=== PATIENT | female | born 1955 | race Caucasian/White ===

== ENCOUNTER → 2020-07-09 | Outpatient (CLI) | payer MEDICARE, OTHER ==
--- NOTE | 2020-07-12 07:31 | PE ---
EXAMINATION TYPE: PET CT fusion whole body DATE OF EXAM: 07/09/2020 COMPARISON: Outside MRI right hip report from July 01, 2020 HISTORY: History of breast cancer 2000 with concern for bone cancer. Recent abnormal MRI. TECHNIQUE: Following the intravenous administration of 9.96 mCi of F-18 FDG, whole body images are p erformed from the top of skull to the bottom of feet. Images are reviewed on the computer in the cor onal, axial, and sagittal planes. Reconstructed rotating images are created on independent workstati on and reviewed on the computer. A localization and attenuation correction CT is performed in conju nction with the PET scan. Blood glucose level equals 83. SCAN: Initial Scan FINDINGS: HEAD AND NECK: Abnormal supraclavicular adenopathy bilaterally, for reference there is right sided l ymph node at level of atrophic thyroid gland axial image 67 measuring 1.2 x 1.0 cm, max SUV is 5.68. Just inferior to this there is hypermetabolic left-sided 1.2 x 1.1 cm lymph node axial image 69, max SUV is 4.78. CHEST, MEDIASTINUM, AND HILAR REGION: There is abnormal hypermetabolic right tracheobronchial 1.4 x 1 .1 cm lymph node on image 91, max SUV is 3.89. ABDOMEN AND PELVIS: Normal excretion. Abnormal aortocaval 1.6 x 1.5 cm lymph node axial image 175, ma x SUV is 6.48. LOWER EXTREMITIES: No suspicious abnormal hypermetabolic uptake. OSSEOUS STRUCTURES: Corresponding to patient history there is destructive hypermetabolic mass right a cetabulum with large soft tissue component expanding into pelvis axial image 222 measuring 7.8 x 5.5 cm, max SUV is 12.61. Pathologic subcapital fracture redemonstrated as detailed on prior report. Larg e lesion or confluent lesions destroys superior and inferior pelvic ramus. Multiple additional osseous metastatic lesions . There are multiple lytic and/or hypermetabolic lesio ns. For reference left sacral hypermetabolic lytic lesion axial image 209, max SUV is 7.25. For reference there is soft tissue mass destroying left L4 transverse process measuring 3.5 x 3.2 cm axial image 177, max SUV is 9.97. Multiple additional hypermetabolic and/or lytic lesions throughout the bones. Mild to moderate pathol ogic compression type fractures at L2 and L3 vertebra noted. No distinct spinal canal invasion curren tly. OTHER CT: Small pericardial effusion. Enlarged pulmonary arteries, CT findings consistent with underl benja pulmonary artery hypertension. Mild intraperitoneal fluid. Uterus surgically absent. IMPRESSION: Confirmation of diffuse metastatic disease greatest involving the bones with large lesion right hip level invading pelvis. Pathologic fracture right hip. Pathologic compression type fracture s involving L2 and L3 vertebra. Additional details as discussed above.
== END | disposition home or self-care (01) ==
LOC: RADPETMAIN 13:43
PROVIDERS: ATTEND Family Medicine
DX: C79.51 Secondary malignant neoplasm of bone (principal); C41.4 Malignant neoplasm of pelvic bones, sacrum and coccyx; I31.3 Pericardial effusion (noninflammatory); I77.89 Other specified disorders of arteries and arterioles; M25.851 Other specified joint disorders, right hip; M79.89 Other specified soft tissue disorders; S32.028A Other fracture of second lumbar vertebra, initial encounter for closed fracture; S32.038A Other fracture of third lumbar vertebra, initial encounter for closed fracture; R59.0 Localized enlarged lymph nodes; R18.8 Other ascites; R91.8 Other nonspecific abnormal finding of lung field; Z90.710 Acquired absence of both cervix and uterus
CPT/HCPCS: 78816; A9552

== ENCOUNTER 2020-07-20 21:18 | Inpatient (IN) | payer MEDICARE, OTHER ==
--- NOTE | 2020-07-20 22:06 | XR ---
EXAMINATION TYPE: XR chest 1V portable DATE OF EXAM: 07/20/2020 COMPARISON: NONE HISTORY: Short of breath TECHNIQUE: Single view FINDINGS: There is no heart failure nor confluent pneumonic infiltrate. Costophrenic angles are clear . There are no hilar masses. Bony thorax is intact. IMPRESSION: No active cardiopulmonary disease.
[2020-07-20 22:33] LABS: Anisocytosis Slight; Basophils % (A) 0 %; Eosinophils # (A) 0.1 k/uL (0-0.7); Eosinophils % (A) 1 %; HCT 38.1 % (34.0-46.0); HGB 12.5 gm/dL (11.4-16.0); Lymphocytes # (A) 1.5 k/uL (1.0-4.8); Lymphocytes % (A) 19 %; MCH 29.2 pg (25.0-35.0); MCHC 32.8 g/dL (31.0-37.0); Mean Platelet Volume 8.1; Monocytes # (A) 0.3 k/uL (0-1.0); Monocytes % (A) 4 %; Neutrophils # (A) 5.8 k/uL (1.3-7.7); Neutrophils % (A) 76 %; Platelet Count 190 k/uL (150-450); Poikilocytosis Slight; RBC 4.28 m/uL (3.80-5.40); RDW 16.3 % (11.5-15.5); WBC 7.7 k/uL (3.8-10.6)
[2020-07-20] MEDS: SODIUM CHLORIDE 0.9% 500 ML 500 ML IV SCH ×2 (22:42→23:00)
[2020-07-20 22:47] LABS: Prothrombin Time 10.4 sec (9.0-12.0)
[2020-07-20 22:52] LABS: Albumin 2.8 g/dL (3.5-5.0); Calcium 9.4 mg/dL (8.4-10.2); Potassium 4.1 mmol/L (3.5-5.1); Total Bilirubin 0.5 mg/dL (0.2-1.3); Total Protein 5.7 g/dL (6.3-8.2)
[2020-07-20 22:54] LABS: Partial Thromboplastin Time 22.3 sec (22.0-30.0)
--- NOTE | 2020-07-20 23:24 | ED ---
SOB HPI - General Source: patient, EMS Mode of arrival: EMS Limitations: physical limitation <Dangelo Levine - Last Filed: 07/21/20 00:26> <Fadi Grajeda - Last Filed: 07/21/20 00:45> - General Chief Complaint: Shortness of Breath Stated Complaint: JAMARCUS Time Seen by Provider: 07/20/20 21:30 - History of Present Illness Initial Comments: Is a 65-year-old female with a history of breast cancer in the remote past and recent diagnosis of bony metastasis who presents emergency department for worsening shortness of breath and fatigue over the last couple of days. The patient lives at home by herself however does have a sister who lives nearby who comes and helps care for. The patient reportedly become more and more fatigued over the last couple of days and also has been noticing some hematuria and shortness of breath. The patient admits to intermittent cough that she describes is clearing her throat. No fevers or chills. No chest pain. No abdominal pain. No dark or bloody stools. She denies any dysuria. She states that she had an appointment to go to a clinic tomorrow and was trying to make it there however just couldn't stand the shortness of breath so she can emergency department. (Dangelo Levine) - Related Data Home Medications Medication Instructions Recorded Confirmed Ibuprofen [Motrin] 600 mg PO TID PRN 07/20/20 07/20/20 Nutri-Meds Bovine Thyroid Health 65 mg PO DAILY 07/20/20 07/20/20 Capsule Selenium 100 mcg PO DAILY 07/20/20 07/20/20 Allergies Allergy/AdvReac Type Severity Reaction Status Date / Time No Known Allergies Allergy Verified 07/20/20 22:11 Review of Systems ROS Other: All systems not noted in ROS Statement are negative. <Dangelo Levine - Last Filed: 07/21/20 00:26> ROS Other: All systems not noted in ROS Statement are negative. <Fadi Grajeda - Last Filed: 07/21/20 00:45> ROS Statement: Those systems with pertinent positive or pertinent negative responses have been documented in the HPI. Past Medical History Past Medical History: Cancer Additional Past Medical History / Comment(s): breast cancer 1999, bone cancer 2020 History of Any Multi-Drug Resistant Organisms: None Reported Past Surgical History: Appendectomy Past Psychological History: No Psychological Hx Reported Smoking Status: Never smoker Past Alcohol Use History: None Reported Past Drug Use History: None Reported <Dangelo Levine - Last Filed: 07/21/20 00:26> General Exam Limitations: physical limitation <Dangelo Levine - Last Filed: 07/21/20 00:26> - General Exam Comments Initial Comments: Constitutional: Awake alert Appears comfortable appears pale Head: Normocephalic atraumatic Eyes: no conjunctival injection No scleral icterus EOMI conjunctival pallor Neck: No JVD Supple Heart: Regular rate rhythm normal S1-S2 no murmurs Lungs: Does not appear tachypneic or in any respiratory distress Clear to auscultation bilaterally No wheezing No rales Abdomen: Soft nondistended nontender Extremities: Non edematous DP pulses intact Radial pulses intact Neuro: A&Ox3 No focal neurologic deficits Psych: Appropriate mood and affect (Dangelo Levine) Course <Dangelo Levine - Last Filed: 07/21/20 00:26> Vital Signs 07/20/20 07/20/20 07/20/20 21:20 21:31 22:20 Temperature 97.6 F Pulse Rate 89 89 Respiratory 22 20 22 Rate Blood Pressure 96/65 90/67 O2 Sat by Pulse 78 L 90 L Oximetry - Reevaluation(s) Reevaluation #1: EKG showing normal sinus rhythm with a rate of 87. There is no abnormal ST segment changes or T-wave inversions. QTC is 416. Other intervals normal. No ectopy. 07/20/20 23:24 (Dangelo Levine) Reevaluation #2: 07/20/20 2344 Pts care transitioned to Dr. Grajeda. Plan for admission for dehydration, ELIZABETH, hmaturia. Can't get CTA because of GFR. Dry CT pending. LE dopplers pending. Concern for possible PE. Need to be careful with anticoagulation because of hematuria. Pt and family updated on plan (Dangelo Levine) Procedures - [place] Protocol (Time Out) Nurse: Nini Greene <Dangelo Levine - Last Filed: 07/21/20 00:26> Medical Decision Making - Lab Data Result diagrams: 07/20/20 22:20 07/20/20 22:20 <Dangelo Levine - Last Filed: 07/21/20 00:26> - Lab Data Result diagrams: 07/20/20 22:20 07/20/20 22:20 <Fadi Grajeda - Last Filed: 07/21/20 00:45> - Medical Decision Making I receive this patient as sign out to discuss the admission when the studies were back. Discussed results with Dr. Hooper, who will admit with consults for Dr. Sanders and for the casino slot supervisor's given the elevated troponin, though this is suspected due to the acute kidney injury. Discussed with Dr. Hooper giving dose of Lovenox given the hematuria and at this point the risk of PE is high and will give Lovenox. Patient to have V/Q at first availability. (Fadi Grajeda) - Lab Data Lab Results 07/20/20 07/20/20 07/20/20 Range/Units 22:20 22:20 22:20 WBC 7.7 (3.8-10.6) k/uL RBC 4.28 (3.80-5.40) m/uL Hgb 12.5 (11.4-16.0) gm/dL Hct 38.1 (34.0-46.0) % MCV 89.0 (80.0-100.0) fL MCH 29.2 (25.0-35.0) pg MCHC 32.8 (31.0-37.0) g/dL RDW 16.3 H (11.5-15.5) % Plt Count 190 (150-450) k/uL MPV 8.1 Neutrophils % 76 % Lymphocytes % 19 % Monocytes % 4 % Eosinophils % 1 % Basophils % 0 % Neutrophils # 5.8 (1.3-7.7) k/uL Lymphocytes # 1.5 (1.0-4.8) k/uL Monocytes # 0.3 (0-1.0) k/uL Eosinophils # 0.1 (0-0.7) k/uL Basophils # 0.0 (0-0.2) k/uL Poikilocytosis Slight Anisocytosis Slight PT 10.4 (9.0-12.0) sec INR 1.0 (<1.2) APTT 22.3 (22.0-30.0) sec D-Dimer (<0.60) mg/L FEU Sodium 128 L (137-145) mmol/L Potassium 4.1 (3.5-5.1) mmol/L Chloride 102 (98-107) mmol/L Carbon Dioxide 16 L (22-30) mmol/L Anion Gap 10 mmol/L BUN 54 H (7-17) mg/dL Creatinine 1.40 H (0.52-1.04) mg/dL Est GFR (CKD-EPI)AfAm 45 (>60 ml/min/1.73 sqM) Est GFR (CKD-EPI)NonAf 39 (>60 ml/min/1.73 sqM) Glucose 106 H (74-99) mg/dL Plasma Lactic Acid Matthew (0.7-2.0) mmol/L Calcium 9.4 (8.4-10.2) mg/dL Total Bilirubin 0.5 (0.2-1.3) mg/dL AST 164 H (14-36) U/L ALT 92 H (4-34) U/L Alkaline Phosphatase 299 H (38-126) U/L Troponin I (0.000-0.034) ng/mL NT-Pro-B Natriuret Pep pg/mL Total Protein 5.7 L (6.3-8.2) g/dL Albumin 2.8 L (3.5-5.0) g/dL Urine Color Urine Appearance (Clear) Urine pH (5.0-8.0) Ur Specific [place] (1.001-1.035) Urine Protein (Negative) Urine Glucose (UA) (Negative) Urine Ketones (Negative) Urine Blood (Negative) Urine Nitrite (Negative) Urine Bilirubin (Negative) Urine Urobilinogen (<2.0) mg/dL Ur Leukocyte Esterase (Negative) Urine RBC (0-5) /hpf Urine WBC (0-5) /hpf Ur Squamous Epith Cells (0-4) /hpf Urine Bacteria (None) /hpf Urine Mucus (None) /hpf Coronavirus (PCR) (Not Detectd) 07/20/20 07/20/20 07/20/20 Range/Units 22:20 22:20 22:20 WBC (3.8-10.6) k/uL RBC (3.80-5.40) m/uL Hgb (11.4-16.0) gm/dL Hct (34.0-46.0) % MCV (80.0-100.0) fL MCH (25.0-35.0) pg MCHC (31.0-37.0) g/dL RDW (11.5-15.5) % Plt Count (150-450) k/uL MPV Neutrophils % % Lymphocytes % % Monocytes % % Eosinophils % % Basophils % % Neutrophils # (1.3-7.7) k/uL Lymphocytes # (1.0-4.8) k/uL Monocytes # (0-1.0) k/uL Eosinophils # (0-0.7) k/uL Basophils # (0-0.2) k/uL Poikilocytosis Anisocytosis PT (9.0-12.0) sec INR (<1.2) APTT (22.0-30.0) sec D-Dimer (<0.60) mg/L FEU Sodium (137-145) mmol/L Potassium (3.5-5.1) mmol/L Chloride (98-107) mmol/L Carbon Dioxide (22-30) mmol/L Anion Gap mmol/L BUN (7-17) mg/dL Creatinine (0.52-1.04) mg/dL Est GFR (CKD-EPI)AfAm (>60 ml/min/1.73 sqM) Est GFR (CKD-EPI)NonAf (>60 ml/min/1.73 sqM) Glucose (74-99) mg/dL Plasma Lactic Acid Matthew 2.3 H* (0.7-2.0) mmol/L Calcium (8.4-10.2) mg/dL Total Bilirubin (0.2-1.3) mg/dL AST (14-36) U/L ALT (4-34) U/L Alkaline Phosphatase (38-126) U/L Troponin I (0.000-0.034) ng/mL NT-Pro-B Natriuret Pep 66947 pg/mL Total Protein (6.3-8.2) g/dL Albumin (3.5-5.0) g/dL Urine Color Urine Appearance (Clear) Urine pH (5.0-8.0) Ur Specific [place] (1.001-1.035) Urine Protein (Negative) Urine Glucose (UA) (Negative) Urine Ketones (Negative) Urine Blood (Negative) Urine Nitrite (Negative) Urine Bilirubin (Negative) Urine Urobilinogen (<2.0) mg/dL Ur Leukocyte Esterase (Negative) Urine RBC (0-5) /hpf Urine WBC (0-5) /hpf Ur Squamous Epith Cells (0-4) /hpf Urine Bacteria (None) /hpf Urine Mucus (None) /hpf Coronavirus (PCR) Not Detected (Not Detectd) 07/20/20 07/20/20 07/20/20 Range/Units 22:20 22:20 23:20 WBC (3.8-10.6) k/uL RBC (3.80-5.40) m/uL Hgb (11.4-16.0) gm/dL Hct (34.0-46.0) % MCV (80.0-100.0) fL MCH (25.0-35.0) pg MCHC (31.0-37.0) g/dL RDW (11.5-15.5) % Plt Count (150-450) k/uL MPV Neutrophils % % Lymphocytes % % Monocytes % % Eosinophils % % Basophils % % Neutrophils # (1.3-7.7) k/uL Lymphocytes # (1.0-4.8) k/uL Monocytes # (0-1.0) k/uL Eosinophils # (0-0.7) k/uL Basophils # (0-0.2) k/uL Poikilocytosis Anisocytosis PT (9.0-12.0) sec INR (<1.2) APTT (22.0-30.0) sec D-Dimer 3.13 H (<0.60) mg/L FEU Sodium (137-145) mmol/L Potassium (3.5-5.1) mmol/L Chloride (98-107) mmol/L Carbon Dioxide (22-30) mmol/L Anion Gap mmol/L BUN (7-17) mg/dL Creatinine (0.52-1.04) mg/dL Est GFR (CKD-EPI)AfAm (>60 ml/min/1.73 sqM) Est GFR (CKD-EPI)NonAf (>60 ml/min/1.73 sqM) Glucose (74-99) mg/dL Plasma Lactic Acid Matthew (0.7-2.0) mmol/L Calcium (8.4-10.2) mg/dL Total Bilirubin (0.2-1.3) mg/dL AST (14-36) U/L ALT (4-34) U/L Alkaline Phosphatase (38-126) U/L Troponin I 0.056 H* (0.000-0.034) ng/mL NT-Pro-B Natriuret Pep pg/mL Total Protein (6.3-8.2) g/dL Albumin (3.5-5.0) g/dL Urine Color Yellow Urine Appearance Clear (Clear) Urine pH 6.0 (5.0-8.0) Ur Specific [place] 1.016 (1.001-1.035) Urine Protein 1+ H (Negative) Urine Glucose (UA) Negative (Negative) Urine Ketones Negative (Negative) Urine Blood Large H (Negative) Urine Nitrite Negative (Negative) Urine Bilirubin Negative (Negative) Urine Urobilinogen <2.0 (<2.0) mg/dL Ur Leukocyte Esterase Negative (Negative) Urine RBC >182 H (0-5) /hpf Urine WBC 6 H (0-5) /hpf Ur Squamous Epith Cells <1 (0-4) /hpf Urine Bacteria Rare H (None) /hpf Urine Mucus Rare H (None) /hpf Coronavirus (PCR) (Not Detectd) Disposition <Dangelo Levine - Last Filed: 07/21/20 00:26> <Fadi Grajeda - Last Filed: 07/21/20 00:45> Clinical Impression: Dyspnea, Femur fracture, right, Elevated troponin I level, D-dimer, elevated, Acute kidney injury, Hyponatremia, Hematuria Disposition: ADMITTED IP TO THIS [facility] Condition: Serious Referrals: Adis Hooper MD [Primary Care Provider] - 1-2 days
[2020-07-20 23:40] LABS: Appearance,Urine Clear (Clear); Bacteria,Urine Rare /hpf; Bilirubin,Urine Negative (Negative); Blood,Urine Large (Negative); Color,Urine Yellow; Glucose,Urine (UA) Negative (Negative); Ketones,Urine Negative (Negative); Leukocyte Esterase,Urine Negative (Negative); Mucus,Urine Rare /hpf; Nitrite,Urine Negative (Negative); Protein,Urine 1+ (Negative); RBC,Urine >182 /hpf (0-5); Specific Gravity,Urine 1.016 (1.001-1.035); Squamous Epithelial Cell,Urine <1 /hpf (0-4); Urobilinogen,Urine <2.0 mg/dL (<2.0); WBC,Urine 6 /hpf (0-5)
[2020-07-21] MEDS ORDERED: ENOXAPARIN 80 MG/0.8 ML SYRINGE SQ STA (00:25)
[2020-07-21] MEDS ORDERED: ACETAMINOPHEN TAB 325 MG TAB PO PRN (00:27)
[2020-07-21] MEDS ORDERED: NALOXONE 0.4 MG/ML 1 ML VIAL IV PRN (00:27)
[2020-07-21] MEDS: SODIUM CHLORIDE 0.9% 1,000 ML IV SCH ×2 (00:36→15:30)
--- NOTE | 2020-07-21 00:39 | CT ---
EXAMINATION TYPE: CT ChestAbdPelvis wo con DATE OF EXAM: 07/21/2020 COMPARISON: None HISTORY: pain all over CT DLP: 924.5 mGycm Automated exposure control for dose reduction was used. Images obtained from the thoracic inlet to the floor the pelvis without contrast. FINDINGS: There is some interstitial infiltrate and subsegmental atelectasis in the posterior lung rodney. Ther e is small pericardial effusion. Heart is borderline enlarged. There is multiple paratracheal lymph n odes that measure up to 1.5 cm. There are no hilar masses. There is some subcutaneous edema on the le ft lateral chest wall. Liver and spleen are intact. Stomach is intact. The bile is are not dilated. Gallbladder appears norm al. There is no sign of pancreatic mass. There is no adrenal mass. Kidneys have normal size. There is no hydronephrosis. There is 3 mm calculu s lower pole left kidney. There is no retroperitoneal adenopathy. There is some mild ascites. There i s edema and the fat in the right paracolic gutter. There is presacral edema with fluid accumulation a round the rectum. There is Pina catheter in the urinary bladder. There is a large 10 cm mass at the right pelvic sidewall with destruction of the right acetabulum and right ischium. There is some effac ement of the urinary bladder. Mass has mixed density with calcification. There is subcutaneous edema around the pelvis. This is more on the right side. There is compression fractures of L3 and L2 verteb ra. There is 3 cm area of destructive change involving the left side pedicle of L1 vertebra. There is wedging of T7 vertebra 30%. There appears to be some destructive changes of the L3 and L2 vertebral bodies with pathologic fractures. The sternum is intact. There is displaced fracture right femoral ne ck which could BE a pathologic fracture. There is over 3 cm of displacement inferiorly of the femoral head. IMPRESSION: Mild pericardial effusion unchanged. Subsegmental atelectasis at the lung bases. This appears slightl y increased compared to old exam. Subcutaneous edema around the abdomen and pelvis is increased amita red to old exam. Large destructive lesion in the pelvis on the right side appears slightly increased compared to old e xam. Fracture right femoral neck unchanged. Multiple compression fractures with bone destruction cons istent with metastatic disease in the thoracic and lumbar spine. This appears similar to recent exam. There is new mild ascites fluid compared to old exam.
--- NOTE | 2020-07-21 00:49 | US ---
EXAMINATION TYPE: US venous doppler duplex LE DATE OF EXAM: 07/21/2020 12:38 AM COMPARISON: NONE CLINICAL HISTORY: swelling. Swelling. Hx bone cancer. No hx of DVT. Patient does not take blood thinn ers. SIDE PERFORMED: Bilateral TECHNIQUE: The lower extremity deep venous system is examined utilizing real time linear array sonog drew with graded compression, doppler sonography and color-flow sonography. VESSELS IMAGED: Common Femoral Vein Deep Femoral Vein Greater Saphenous Vein * Femoral Vein Popliteal Vein Small Saphenous Vein * Proximal Calf Veins (* superficial vessels) Slightly limited due to edema and patient unable to move legs. Right Leg: The proximal femoral vein appears to compress incompletely. Color flow is seen within the vessel. Possible minimal chronic thrombus? No evidence in remaining segments of veins imaged at this time. Left Leg: No evidence of DVT in veins imaged at this time from prox calf veins to CFV/GSV. Anechoic area seen left medial popliteal area measurin.9 x 1.3 x 1.3 cm. IMPRESSION: There is possible mild chronic deep vein thrombosis in the right femoral vein. There is left side popliteal cyst. No evidence of deep vein thrombosis on the left side.
[2020-07-21] MEDS ORDERED: LORazepam 2 MG/ML INJ IV STA (01:03)
[2020-07-21] MEDS: HYDROmorphone 0.5 MG/0.5 ML SYRINGE IVP STA ×2 (01:15→01:17)
[2020-07-21] MEDS ORDERED: MIDODRINE 5 MG TAB PO STA (06:55)
[2020-07-21 08:25] LABS: Calcium 8.8 mg/dL (8.4-10.2)
[2020-07-21 09:01] LABS: Anisocytosis Slight; HCT 36.1 % (34.0-46.0); HGB 11.8 gm/dL (11.4-16.0); Hypochromasia Slight; MCH 29.7 pg (25.0-35.0); MCHC 32.8 g/dL (31.0-37.0); MCV 90.4 fL (80.0-100.0); Mean Platelet Volume 8.9; Platelet Count 186 k/uL (150-450); Poikilocytosis Slight; RBC 3.99 m/uL (3.80-5.40); RDW 16.7 % (11.5-15.5)
--- NOTE | 2020-07-21 11:00 | ECHOF ---
Referral Reason:elevated BNP MEASUREMENTS -------- HEIGHT: 165.1 cm WEIGHT: 77.1 kg BP: 82/56 RVIDd: 4.0 cm (< 3.3) IVSd: 1.1 cm (0.6 - 1.1) LVIDd: 2.6 cm (3.9 - 5.3) LVPWd: 1.0 cm (0.6 - 1.1) IVSs: 1.4 cm LVIDs: 1.5 cm LVPWs: 1.7 cm Ao Diam: 3.0 cm (2.0 - 3.7) AV Cusp: 1.7 cm (1.5 - 2.6) LA Diam: 2.2 cm (2.7 - 3.8) MV EXCURSION: 8.330 mm (> 18.000) MV EF SLOPE: 29 mm/s (70 - 150) EPSS: 0.5 cm MV E Rik: 0.73 m/s MV DecT: 101 ms MV A Rik: 0.68 m/s MV E/A Ratio: 1.08 RAP: 20.00 mmHg RVSP: 67.19 mmHg FINDINGS -------- This was a technically difficult study with suboptimal views. Left ventricular wall thickness is normal. Overall left ventricular systolic function is low-normal with, an EF between 50 - 55 %. There is paradoxical/dysynergic septal motion consistent with right ventricular volume overload and/or elevated right ventricular end-diastolic pressure. The right ventricle is moderately enlarged. , and the LA measures 2.2cm. RA appears enlarged. The aortic valve is trileaflet and appears structurally normal. The mitral valve is normal. No mitral regurgitation. The tricuspid valve appears structurally normal. Severe tricuspid regurgitation present. There is moderate to severe pulmonary hypertension. The right ventricular systolic pressure, as measured by Doppler, is 67.19mmHg. Trace/mild (physiologic) pulmonic regurgitation. The aortic root size is normal. The inferior vena cava is dilated with no significant inspiratory collapse which is consistent estima matthew right atrial pressure of >20 mmHg. There is a small, generalized pericardial effusion present. CONCLUSIONS -------- 1. Left ventricular wall thickness is normal. 2. Overall left ventricular systolic function is low-normal with, an EF between 50 - 55 %. 3. There is paradoxical/dysynergic septal motion consistent with right ventricular volume overload an d/or elevated right ventricular end-diastolic pressure. 4. The right ventricle is moderately enlarged. 5. RA appears enlarged. 6. Severe tricuspid regurgitation present. 7. There is moderate to severe pulmonary hypertension. 8. The right ventricular systolic pressure, as measured by Doppler, is 67.19mmHg. 9. Trace/mild (physiologic) pulmonic regurgitation. 10. The inferior vena cava is dilated with no significant inspiratory collapse which is consistent es timated right atrial pressure of >20 mmHg. 11. There is a small, generalized pericardial effusion present. INFORMATION TECHNOLOGY ASSOCIATE: Emili Lamas RDCS
[2020-07-21 11:01] LABS: Band Neutrophils % 3 %; Eosinophils # (M) 0.08 k/uL (0-0.7); Metamyelocytes # (M) 0.08 k/uL (0); Metamyelocytes % 1 %; Neutrophils % (M) 70 %; Nucleated Red Blood Cells 1 /100 WBC (0-0); Total Cells Counted 100
[2020-07-21 11:02] LABS: Lymphocytes # (M) 1.64 k/uL (1.0-4.8); Monocytes # (M) 0.41 k/uL (0-1.0); WBC 8.2 k/uL (3.8-10.6)
[2020-07-21] MEDS: FAMOTIDINE 20 MG TAB PO SCH ×2 (11:02→11:35)
[2020-07-21 11:04] LABS: Polychromasia Present
--- NOTE | 2020-07-21 13:20 | P.CRDCN ---
History of Present Illness History of present illness: HISTORY OF PRESENTING ILLNESS This is a pleasant 65-year-old female past medical history significant for for breast cancer status post lumpectomy, chemotherapy and radiation in 2008 with recently diagnosed metastasis to the thoracic and lumbar spine as well as the femur. 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 We have been asked to see in consultation for elevated troponin. She presented to the hospital with symptoms of increased weakness, fatigue and shortness of breath over the previous couple of days. She is seen and examined sitting up in bed in mild respiratory distress. She states she feels tired. She is hypoxic on room air however was not tolerating the BiPAP last night. She denies symptoms of chest discomfort. Echocardiogram obtained on this admission reveals preserved LV systolic function with ejection fraction 50-55%, to surgery septal wall motion consistent with right ventricular volume overload, severe tricuspid regurgitation, moderate to severe pulmonary hypertension and a small generalized pericardial effusion. DIAGNOSTICS EKG reveals sinus mechanism T-wave inversions inferiorly and poor R-wave progression. Chest xray negative for an acute cardiopulmonary process. CT of the chest abdomen and pelvis reveals an unchanged mild pericardial effusion, subsegmental atelectasis at the lung bases, subcutaneous edema around the abdomen and pelvis increased compared to previous exam, large distractive lesion in the pelvis on the right side increased compared to old exam, fracture of the right femoral neck unchanged, multiple compression fractures with bone destruction consistent with metastatic disease in the thoracic and lumbar spine. There is no mild ascites fluid compared to old exam. Laboratory reviewed, d-dimer 3.13, CBC unremarkable, sodium 129, potassium 4.0, creatinine 1.32, lactic acid 2.3 on admission, AST 164, ALT 92, alkaline phosphatase 299, troponin 0.056, 0.061, 0.074 and proBNP 16,400. She takes no daily cardiac medications. REVIEW OF SYSTEMS At the time of my exam: CONSTITUTIONAL: Denies fever or chills. CARDIOVASCULAR: Complains of shortness of breath. Denies chest pain, orthopnea, PND or palpitations. RESPIRATORY: Denies cough. GASTROINTESTINAL: Denies abdominal pain, diarrhea, constipation, nausea or vomiting. MUSCULOSKELETAL: Denies myalgias. NEUROLOGIC: Denies numbness, tingling, headacbe or weakness. ENDOCRINE: Denies fatigue, weight change, polydipsia or polyurina. GENITOURINARY: Denies burning, hematuria or urgency with micturation. HEMATOLOGIC: Denies history of anemia or bleeding. PHYSICAL EXAMINATION Blood pressure 98/76 heart rate 85 afebrile and maintaining oxygen saturation on nasal cannula. CONSTITUTIONAL: No apparent distress. HEENT: Head is normocephalic. Pupils are equal, round. Sclerae anicteric. Mucous membranes of the mouth are moist. No JVD. No carotid bruit. CHEST EXAMINATION: Lungs are clear to auscultation. No chest wall tenderness is noted on palpation or with deep breathing. HEART EXAMINATION: Regular rate and rhythm. S1, S2 heard. No murmurs, gallops or rub. ABDOMEN: Soft, nontender. Positive bowel sounds. EXTREMITIES: 2+ peripheral pulses, 2+ bilateral lower extremity edema and no calf tenderness. NEUROLOGIC EXAMINATION: Patient is awake, alert and oriented x3. ASSESSMENT Hypoxia Troponin elevation secondary to oxygen supply and demand mismatch Metastatic bone cancer Lactic acidosis Fluid overload consistent with congestion due to metastatic cancer PLAN Echocardiogram has been obtained and reviewed. No further cardiac intervention at this time. Prognosis guarded. Further treatment and evaluation per oncology. Thank you kindly for this consultation. Nurse Practitioner note has been reviewed, I agree with a documented findings and plan of care. Patient was seen and examined. Past Medical History Past Medical History: Cancer Additional Past Medical History / Comment(s): 1999 R breast cancer with lumpect carlos/chemo/radiation and recently found out she has metastasis to bone, recently has been having hematuria/abnormal kidney labs, R femur fracture/July 01 2020- ambulates with walker and was to see orthopedic oncologists at [place] soon. History of Any Multi-Drug Resistant Organisms: None Reported Past Surgical History: Appendectomy, Breast Surgery Additional Past Surgical History / Comment(s): R breast lumpectomy, colonoscopy Past Anesthesia/Blood Transfusion Reactions: No Reported Reaction Smoking Status: Never smoker - Past Family History Father Family Medical History: Cancer Additional Family Medical History / Comment(s): Prostate cancer to bone. Father lived to be 84 yrs old. Father was a smoker/ETOH Mother Family Medical History: Cancer Additional Family Medical History / Comment(s): Mother is from breast to lung cancer at the age of 52 yrs. She was a smoker/ETOH Medications and Allergies Home Medications Medication Instructions Recorded Confirmed Type Ibuprofen [Motrin] 600 mg PO TID PRN 07/20/20 07/20/20 History Nutri-Meds Bovine Thyroid Health 65 mg PO DAILY 07/20/20 07/20/20 History Capsule Selenium 100 mcg PO DAILY 07/20/20 07/20/20 History Allergies Allergy/AdvReac Type Severity Reaction Status Date / Time No Known Allergies Allergy Verified 07/20/20 22:11 Physical Exam Vitals: Vital Signs Temp Pulse Pulse Resp BP BP Pulse Ox 07/21/20 11:08 97.4 F L 85 18 98/76 90 L 07/21/20 09:09 94 L 07/21/20 07:40 97.5 F L 84 18 92/77 96 07/21/20 07:08 81/69 07/21/20 06:12 17 82/56 93 L 07/21/20 04:43 95/57 07/21/20 04:15 16 86/65 93 L 07/21/20 03:23 96.7 F L 88 16 89/59 93 L 07/21/20 02:00 89 22 90/72 91 L 07/21/20 01:26 82 20 83/67 91 L 07/20/20 22:20 89 22 90/67 90 L 07/20/20 21:31 20 07/20/20 21:20 97.6 F 89 22 96/65 78 L Intake and Output 07/20/20 07/21/20 07/21/20 22:59 06:59 14:59 Output Total 550 Balance -550 Output: Urine 550 Other: Voiding Method Indwelling Catheter Indwelling Catheter Weight 77.111 kg 77.111 kg Results 07/21/20 07:58 07/21/20 07:58 Cardiac Enzymes 07/20/20 07/20/20 07/21/20 Range/Units 22:20 22:20 01:07 AST 164 H (14-36) U/L Troponin I 0.056 H* 0.061 H* (0.000-0.034) ng/mL 07/21/20 Range/Units 04:30 AST (14-36) U/L Troponin I 0.074 H* (0.000-0.034) ng/mL Coagulation 07/20/20 Range/Units 22:20 PT 10.4 (9.0-12.0) sec APTT 22.3 (22.0-30.0) sec CBC 07/20/20 07/21/20 Range/Units 22:20 07:58 WBC 7.7 8.2 (3.8-10.6) k/uL RBC 4.28 3.99 (3.80-5.40) m/uL Hgb 12.5 11.8 (11.4-16.0) gm/dL Hct 38.1 36.1 (34.0-46.0) % Plt Count 190 186 (150-450) k/uL Comprehensive Metabolic Panel 07/20/20 07/21/20 Range/Units 22:20 07:58 Sodium 128 L 129 L (137-145) mmol/L Potassium 4.1 4.0 (3.5-5.1) mmol/L Chloride 102 104 (98-107) mmol/L Carbon Dioxide 16 L 16 L (22-30) mmol/L BUN 54 H 53 H (7-17) mg/dL Creatinine 1.40 H 1.32 H (0.52-1.04) mg/dL Glucose 106 H 99 (74-99) mg/dL Calcium 9.4 8.8 (8.4-10.2) mg/dL AST 164 H (14-36) U/L ALT 92 H (4-34) U/L Alkaline Phosphatase 299 H (38-126) U/L Total Protein 5.7 L (6.3-8.2) g/dL Albumin 2.8 L (3.5-5.0) g/dL Current Medications Generic Name Dose Route Start Last Admin Trade Name Freq PRN Reason Stop Dose Admin Acetaminophen 650 mg 07/21/20 00:27 Acetaminophen Tab 325 Mg Tab PO Q6HR PRN Mild Pain or Fever > 100.5 Famotidine 20 mg 07/21/20 09:00 07/21/20 11:35 Famotidine 20 Mg Tab PO Not Given BID SANDOVAL Sodium Chloride 1,000 mls @ 75 mls/hr 07/21/20 00:30 07/21/20 00:36 Saline 0.9% IV 75 mls/hr .[id number] SANDOVAL Administration Naloxone HCl 0.2 mg 07/21/20 00:27 Naloxone 0.4 Mg/Ml 1 Ml Vial IV Q2M PRN Opioid Reversal Intake and Output 07/20/20 07/21/20 07/21/20 22:59 06:59 14:59 Output Total 550 Balance -550 Output: Urine 550 Other: Voiding Method Indwelling Catheter Indwelling Catheter Weight 77.111 kg 77.111 kg Patient Weight 07/22/20 06:59 Weight 77.111 kg 07/21/20 07:58 07/21/20 07:58
--- NOTE | 2020-07-21 13:42 | P.CONS ---
History of Present Illness - Reason for Consult Consult date: 07/21/20 Metastatic Cancer Requesting physician: Dez Epperson - Chief Complaint SOB - History of Present Illness Ms Hooker is a pleasant white female, with overall well-controlled medical problems at baseline. The patient was in her usual state of health until about 02/16. She states that at that time she developed new onset of pain in the right groin and the right buttock area. This became progressively more severe to where it is interfering with weightbearing and strength in her right leg. She also developed some pain in her lower back and then subsequently, to a lesser extent, in the left hip. The patient was seen by her PCP, due to progression of symptoms. She had an MRI on 07/01/20. This showed a dominant destructive focus in the right hip involving the right acetabulum right pubic bone with expansile mass protruding into the right upper weightbearing. There appeared to be left pubic bone, bilateral sacral and iliac bone involvement. The levels of lumbar spine involvement. There was a pathologic fracture of the right femoral neck, intracapsular, as well as pathologic lesion in the left femoral head felt to be at risk of impending fracture. There was also grade 2-3 muscle tear of the right adductor with likely intramuscular hematoma. The patient was therefore referred here for further evaluation and recommendations. She also had a PET scan done on 07/09/20. This showed bilateral supraclavicular adenopathy with nodes measuring in the 1.2 cm range, and SUV ranging from 4.7 range to 5.68. 1.4 x 1.1 cm right tracheal bronchial known SUV 3.89, 1.6 aortocaval node SUV [id number] were also noted. Mass in the right axilla was now 7.8 x 5.5 cm with SUV of 12.6 extending into the superior and inferior pubic rami. Multiple additional osseous lesions including left sacrum, left L4 transverse process, compression fractures at L2 and L3, as well as other lesions throughout the skeleton. The patient states that she was diagnosed with right-sided breast cancer in 1999 and treated with lumpectomy, radiation and 4 cycles of chemotherapy. She also had lymph node sampling but does not remember if lymph nodes were involved. She states she was offered tamoxifen (indicating tumor was hormone receptor positive) but decided to refuse it. her care was at [facility] in [place], [place]. He followed up with her surgeon for another 2 years, but did not have any oncology follow-up since. Last mammogram was around 2017. Patient is able to currently ambulate only short distances with a walker and essentially cannot bear any significant weight on the right lower extremity. She denies any loss of sensation including bowel or bladder. On 07/18/20 She was seen by Dr. moran earlier this week in office: the patient is being seen with a clinical picture consistent with extensive metastatic malignancy inv olving the skeleton, with the most dominant lesion in the right hip are causing significant destruction. Patient also has involvement in the pelvis, possible impending fracture in the left hip, as well as multiple other areas of the skeleton. She does not have any dominant soft tissue mass, but does have some positive adenopathy in bilateral supraclavicular and in the upper mediastinum. - The patient was advised that the clinical picture is quite consistent with metastatic cancer, most likely solid tumor metastatic to the bone. Given her prior history, late recurrence of breast cancer with predominant bone involvement is the primary differential. However other possibilities are not ruled out. The next step therefore would be to obtain a tissue diagnosis. On my exam supraclavicular lymph nodes were fairly indistinct. Therefore it would be reasonable to target the right hip lesion. - The patient has pathologic fracture in the right femur and impending fracture in the left femur. In this situation, it would be reasonable to discuss with orthopedic oncology if she would be a candidate for upfront stabilization, which would also provide a tissue diagnosis. She can then have additional radiation postoperatively. If she is not felt to be an upfront surgical candidate, then we will schedule biopsy with IR, and palliative radiation. - Patient was advised that treatment directed to her joints is essentially palliative in nature. Main stay of treatment would be systemic therapy the nature which would of course depend on that tissue diagnosis. She was advised that if biopsy did confirm hormone receptor positive breast cancer, then first- line treatment would consist of hormonal manipulation plus CDK 4/6 inhibitor. - The patient states that her pain was actually reasonably controlled with Motrin alone and avoidance of weight bearing. She was advised to continue avoidance of weight bearing as much as possible with the use of wheelchair, and walker for short distances and transfers, both of which she has at home. She has been given a prescription for tramadol by her PCP. She was advised to contact us if this was not effective, in which case regimen can be enhanced. - The patient's treatment plan will also consist of IV bisphosphonate or Xgeva - The patient was also advised to take a stool softener regularly. She has a herbal laxative preparation available, and was asked to use it when necessary in addition to the regular use a stool softener. -Check labs, including breast cancer tumor markers - check bilateral breast ultrasound to rule out new primary as the source of metastases - Orthopedic oncology at [facility] contacted. D/w Dr Smith, orthopedic oncology, at [facility]. he will see the patient and evaluate her films and then assess if she is a candidate for upfront surgery. In that case surgical procedure will also provide tissue diagnosis. If not the patient will be set up for IR guided biopsy and radiation first. Past Medical History Past Medical History: Cancer Additional Past Medical History / Comment(s): 1999 R breast cancer with lumpectomy/chemo/radiation and recently found out she has metastasis to bone, recently has been having hematuria/abnormal kidney labs, R femur fracture/July 01 2020-ambulates with walker and was to see orthopedic oncologists at [place] soon. History of Any Multi-Drug Resistant Organisms: None Reported Past Surgical History: Appendectomy, Breast Surgery Additional Past Surgical History / Comment(s): R breast lumpectomy, colonoscopy Past Anesthesia/Blood Transfusion Reactions: No Reported Reaction Smoking Status: Never smoker - Past Family History Father Family Medical History: Cancer Additional Family Medical History / Comment(s): Prostate cancer to bone. Father lived to be 84 yrs old. Father was a smoker/ETOH Mother Family Medical History: Cancer Additional Family Medical History / Comment(s): Mother is from breast to lung cancer at the age of 52 yrs. She was a smoker/ETOH Medications and Allergies Home Medications Medication Instructions Recorded Confirmed Type Ibuprofen [Motrin] 600 mg PO TID PRN 07/20/20 07/20/20 History Nutri-Meds Bovine Thyroid Health 65 mg PO DAILY 07/20/20 07/20/20 History Capsule Selenium 100 mcg PO DAILY 07/20/20 07/20/20 History Allergies Allergy/AdvReac Type Severity Reaction Status Date / Time No Known Allergies Allergy Verified 07/20/20 22:11 Physical Exam Vitals: Vital Signs Temp Pulse Pulse Resp BP BP Pulse Ox 07/21/20 11:08 97.4 F L 85 18 98/76 90 L 07/21/20 09:09 94 L 07/21/20 07:40 97.5 F L 84 18 92/77 96 07/21/20 07:08 81/69 07/21/20 06:12 17 82/56 93 L 07/21/20 04:43 95/57 07/21/20 04:15 16 86/65 93 L 07/21/20 03:23 96.7 F L 88 16 89/59 93 L 07/21/20 02:00 89 22 90/72 91 L 07/21/20 01:26 82 20 83/67 91 L 07/20/20 22:20 89 22 90/67 90 L 07/20/20 21:31 20 07/20/20 21:20 97.6 F 89 22 96/65 78 L Intake and Output 07/20/20 07/21/20 07/21/20 22:59 06:59 14:59 Output Total 550 Balance -550 Output: Urine 550 Other: Voiding Method Indwelling Catheter Indwelling Catheter Weight 77.111 kg 77.111 kg - Constitutional General appearance: cooperative, mild distress - EENT Eyes: edentulous ENT: NA/AT, normal oropharynx - Respiratory Respiratory: bilateral: diminished - Cardiovascular Rhythm: regularly irregular - Gastrointestinal General gastrointestinal: distended, soft - Integumentary Integumentary: pale - Neurologic keny - Musculoskeletal Limited ROM Musculoskeletal: generalized weakness - Psychiatric Psychiatric: A&O x's 3, appropriate affect, intact judgment & insight Results CBC & Chem 7: 07/21/20 07:58 07/21/20 07:58 Labs: Abnormal Lab Results - Last 24 Hours (Table) 07/20/20 07/20/20 07/20/20 Range/Units 22:20 22:20 22:20 RDW 16.3 H (11.5-15.5) % Metamyelocytes # (Man) (0) k/uL Nucleated RBCs (0-0) /100 WBC D-Dimer (<0.60) mg/L FEU Sodium 128 L (137-145) mmol/L Carbon Dioxide 16 L (22-30) mmol/L BUN 54 H (7-17) mg/dL Creatinine 1.40 H (0.52-1.04) mg/dL Glucose 106 H (74-99) mg/dL Plasma Lactic Acid Matthew 2.3 H* (0.7-2.0) mmol/L AST 164 H (14-36) U/L ALT 92 H (4-34) U/L Alkaline Phosphatase 299 H (38-126) U/L Troponin I (0.000-0.034) ng/mL Total Protein 5.7 L (6.3-8.2) g/dL Albumin 2.8 L (3.5-5.0) g/dL Urine Protein (Negative) Urine Blood (Negative) Urine RBC (0-5) /hpf Urine WBC (0-5) /hpf Urine Bacteria (None) /hpf Urine Mucus (None) /hpf 07/20/20 07/20/20 07/20/20 Range/Units 22:20 22:20 23:20 RDW (11.5-15.5) % Metamyelocytes # (Man) (0) k/uL Nucleated RBCs (0-0) /100 WBC D-Dimer 3.13 H (<0.60) mg/L FEU Sodium (137-145) mmol/L Carbon Dioxide (22-30) mmol/L BUN (7-17) mg/dL Creatinine (0.52-1.04) mg/dL Glucose (74-99) mg/dL Plasma Lactic Acid Matthew (0.7-2.0) mmol/L AST (14-36) U/L ALT (4-34) U/L Alkaline Phosphatase (38-126) U/L Troponin I 0.056 H* (0.000-0.034) ng/mL Total Protein (6.3-8.2) g/dL Albumin (3.5-5.0) g/dL Urine Protein 1+ H (Negative) Urine Blood Large H (Negative) Urine RBC >182 H (0-5) /hpf Urine WBC 6 H (0-5) /hpf Urine Bacteria Rare H (None) /hpf Urine Mucus Rare H (None) /hpf 07/21/20 07/21/20 07/21/20 Range/Units 01:07 01:07 04:30 RDW (11.5-15.5) % Metamyelocytes # (Man) (0) k/uL Nucleated RBCs (0-0) /100 WBC D-Dimer (<0.60) mg/L FEU Sodium (137-145) mmol/L Carbon Dioxide (22-30) mmol/L BUN (7-17) mg/dL Creatinine (0.52-1.04) mg/dL Glucose (74-99) mg/dL Plasma Lactic Acid Matthew 2.5 H* (0.7-2.0) mmol/L AST (14-36) U/L ALT (4-34) U/L Alkaline Phosphatase (38-126) U/L Troponin I 0.061 H* 0.074 H* (0.000-0.034) ng/mL Total Protein (6.3-8.2) g/dL Albumin (3.5-5.0) g/dL Urine Protein (Negative) Urine Blood (Negative) Urine RBC (0-5) /hpf Urine WBC (0-5) /hpf Urine Bacteria (None) /hpf Urine Mucus (None) /hpf 07/21/20 07/21/20 07/21/20 Range/Units 04:30 07:36 07:58 RDW 16.7 H (11.5-15.5) % Metamyelocytes # (Man) 0.08 H (0) k/uL Nucleated RBCs 1 H (0-0) /100 WBC D-Dimer (<0.60) mg/L FEU Sodium (137-145) mmol/L Carbon Dioxide (22-30) mmol/L BUN (7-17) mg/dL Creatinine (0.52-1.04) mg/dL Glucose (74-99) mg/dL Plasma Lactic Acid Matthew 2.2 H* 2.3 H* (0.7-2.0) mmol/L AST (14-36) U/L ALT (4-34) U/L Alkaline Phosphatase (38-126) U/L Troponin I (0.000-0.034) ng/mL Total Protein (6.3-8.2) g/dL Albumin (3.5-5.0) g/dL Urine Protein (Negative) Urine Blood (Negative) Urine RBC (0-5) /hpf Urine WBC (0-5) /hpf Urine Bacteria (None) /hpf Urine Mucus (None) /hpf 07/21/20 07/21/20 Range/Units 07:58 10:58 RDW (11.5-15.5) % Metamyelocytes # (Man) (0) k/uL Nucleated RBCs (0-0) /100 WBC D-Dimer (<0.60) mg/L FEU Sodium 129 L (137-145) mmol/L Carbon Dioxide 16 L (22-30) mmol/L BUN 53 H (7-17) mg/dL Creatinine 1.32 H (0.52-1.04) mg/dL Glucose (74-99) mg/dL Plasma Lactic Acid Matthew 2.1 H* (0.7-2.0) mmol/L AST (14-36) U/L ALT (4-34) U/L Alkaline Phosphatase (38-126) U/L Troponin I (0.000-0.034) ng/mL Total Protein (6.3-8.2) g/dL Albumin (3.5-5.0) g/dL Urine Protein (Negative) Urine Blood (Negative) Urine RBC (0-5) /hpf Urine WBC (0-5) /hpf Urine Bacteria (None) /hpf Urine Mucus (None) /hpf CT scan - abdomen: report reviewed CT scan - chest: report reviewed CT scan - pelvis: report reviewed Assessment and Plan (1) Metastatic cancer to bone Current Visit: Yes Status: Acute Code(s): C79.51 - SECONDARY MALIGNANT NEOPLASM OF BONE SNOMED Code(s): 32557695 (2) History of breast cancer Current Visit: Yes Status: Acute Code(s): Z85.3 - PERSONAL HISTORY OF MALIGNANT NEOPLASM OF BREAST SNOMED Code(s): 110028523 Plan: Assessment and Recommendations: I spoke with Dr. Anam Smith (ortho/onc) and together on facetime we reviewed images from PET scan. At this time the recommendation is to obtain a biopsy of the right sacral lesion as this is unable to be confirmed breast without tissue pathology and remote breast cancer history. I have placed an order for Interventional radiology to move forward with biopsy. - Depending on the results will determine if chemotherapy and radiation will be needed prior to surgical intervention Will also fully stage with imaging of the brain Will ask for MRI discs to be obtained from [facility] and sent to Dr. Smith at [facility] to further review. Will repeat Tumor markers and Hepatic function COntinue work-up for increased shortness of breath and obtain bilateral axilla and breast ultrasound as no primary tumor noted on PET or CT scans Greater than 40 minutes consulting with outside providers and reviewing of scans as well as cordination in care. Discussed plan with RN and Patient and sister. We discussed overall picture as incurable and goal of care to control disease and palliative quality of life. Review of LE doppler was non-diagnostic for DVT, however possible as vein was not compressible. Creatinine 1.3, she has chao catheter in place and urine is mildly blood tinged with sediment, IV hydration running, she is unable to lay flat for VQ scan, however with high possibility of PE risk verse benefit of CTA considered and discussed. WIll move forward with CTA and await bone biopsy in am, then if needed will begin anticoagulation. Case also discussed with Dr. Corcoran and at this time will await breast imaging.
--- NOTE | 2020-07-21 17:20 | XR ---
EXAMINATION TYPE: XR chest 1V DATE OF EXAM: 07/21/2020 COMPARISON: 07/20/2020 HISTORY: Shortness of breath. TECHNIQUE: Single frontal view of the chest is obtained. FINDINGS: There is no focal air space opacity, pleural effusion, or pneumothorax seen. The cardiac silhouette size is within normal limits. The osseous structures are intact. IMPRESSION: No acute process.
--- NOTE | 2020-07-21 18:21 | CT ---
EXAMINATION TYPE: CT angio chest DATE OF EXAM: 07/21/2020 5:18 PM COMPARISON: 07/20/2020. HISTORY: Shortness of breath and history of cancer. CT DLP: 464 mGycm Automated exposure control for dose reduction was used. CONTRAST: CTA scan of the thorax is performed with IV Contrast, patient injected with 80 mL of Isovue 370, pulm onary embolism protocol. MIP images are created and reviewed. FINDINGS: LUNGS: There is mild bibasilar atelectasis and/or scarring. There is also mild biapical pleural thick ening. No concerning parenchymal mass or nodule identified. There is no pleural effusion or pneumot horax seen. The tracheobronchial tree is patent. MEDIASTINUM: There is satisfactory enhancement of the pulmonary artery and its branches, there is no CT evidence for pulmonary embolism. Stable multiple enlarged mediastinal lymph nodes measuring up to 1.2 cm short axis. No pericardial effusion is seen. OTHER: There is mild T7 compression fracture with sclerotic changes of the superior endplate. There is also partially imaged 3 x 1.4 cm lytic destructive lesion within L1 left transverse process involv ing the posterior vertebral body. IMPRESSION: NO ACUTE PE OR CARDIOPULMONARY ABNORMALITY. REDEMONSTRATED PATHOLOGIC T7 COMPRESSION FRACTURE AND L1 DESTRUCTIVE LESIONS, CONSISTENT WITH METASTA TIC DISEASE. Stable mediastinal lymphadenopathy.
[2020-07-21 19:15] LABS: ABG Base Excess -9.4 mmol/L; ABG HCO3 15 mmol/L (21-25); ABG Oxygen Saturation 89.6 % (94-97); ABG PCO2 24 mmHg (35-45); ABG PH 7.41 (7.35-7.45); ABG PO2 60 mmHg (83-108); ABG TCO2 16 mmol/L (19-24); Allen Test Performed? Yes
[2020-07-21] MEDS ORDERED: SODIUM CHLORIDE 0.9% 1,000 ML IV ONE (22:18)
--- NOTE | 2020-07-21 22:35 | P.HPIM ---
History of Present Illness H&P Date: 07/21/20 Chief Complaint: shortness of breath Migdalia Hooker is a 65 yo F with PMH of breast cancer s/p lumpectomy, recent recurrence of cancer with multiple bony metastasis who presented to the ED with shortness of breath and worsened malaise. She states this has been going on for a few days. She has had worsening hip pain since last fall and recently established care and was found to have destructive lesion on imaging. She had just been referred to Oncology and had her first appointment last week. Currently she is on high flow O2, has not been tolerating BIPAP. On presentation SpO2 78% on RA, WBC 7.7, D-dimer 3.13, Cr 1.4, lactic 2.2, BNP 14k, trop mildly elevated. CT chest/abd/pelvis showing multiple destructive bony lesions, no soft tissue abnormality, no PE. Review of Systems All systems: negative Constitutional: Reports fatigue, Reports malaise, Reports weakness, Denies chills, Denies fever Eyes: denies blurred vision, denies pain Ears, nose, mouth and throat: Denies headache, Denies sore throat Cardiovascular: Denies chest pain, Denies shortness of breath Respiratory: Reports cough with sputum, Reports dyspnea, Denies cough Gastrointestinal: Denies abdominal pain, Denies diarrhea, Denies nausea, Denies vomiting Genitourinary: Denies dysuria, Denies hematuria Musculoskeletal: Denies myalgias Integumentary: Denies pruritus, Denies rash Neurological: Denies numbness, Denies weakness Psychiatric: Denies anxiety, Denies depression Endocrine: Denies fatigue, Denies weight change Past Medical History Past Medical History: Cancer Additional Past Medical History / Comment(s): 1999 R breast cancer with lumpectomy/chemo/radiation and recently found out she has metastasis to bone, recently has been having hematuria/abnormal kidney labs, R femur fracture/July 01 2020-ambulates with walker and was to see orthopedic oncologists at [place] soon. History of Any Multi-Drug Resistant Organisms: None Reported Past Surgical History: Appendectomy, Breast Surgery Additional Past Surgical History / Comment(s): R breast lumpectomy, colonoscopy Past Anesthesia/Blood Transfusion Reactions: No Reported Reaction Smoking Status: Never smoker - Past Family History Father Family Medical History: Cancer Additional Family Medical History / Comment(s): Prostate cancer to bone. Father lived to be 84 yrs old. Father was a smoker/ETOH Mother Family Medical History: Cancer Additional Family Medical History / Comment(s): Mother is from breast to lung cancer at the age of 52 yrs. She was a smoker/ETOH Medications and Allergies Home Medications Medication Instructions Recorded Confirmed Type Ibuprofen [Motrin] 600 mg PO TID PRN 07/20/20 07/20/20 History Nutri-Meds Bovine Thyroid Health 65 mg PO DAILY 07/20/20 07/20/20 History Capsule Selenium 100 mcg PO DAILY 07/20/20 07/20/20 History Allergies Allergy/AdvReac Type Severity Reaction Status Date / Time No Known Allergies Allergy Verified 07/20/20 22:11 Physical Exam Vitals: Vital Signs Temp Pulse Pulse Resp BP BP Pulse Ox 07/21/20 20:00 97.5 F L 85 18 95/58 94 L 07/21/20 19:22 92 L 07/21/20 18:19 97.6 F 89 18 85/63 96 07/21/20 16:00 97.5 F L 70 96/51 98 07/21/20 11:08 97.4 F L 85 18 98/76 90 L 07/21/20 09:09 94 L 07/21/20 07:40 97.5 F L 84 18 92/77 96 07/21/20 07:08 81/69 07/21/20 06:12 17 82/56 93 L 07/21/20 04:43 95/57 07/21/20 04:15 16 86/65 93 L 07/21/20 03:23 96.7 F L 88 16 89/59 93 L 07/21/20 02:00 89 22 90/72 91 L 07/21/20 01:26 82 20 83/67 91 L Intake and Output 07/21/20 07/21/20 07/21/20 06:59 14:59 22:59 Intake Total 700 240 Output Total 550 600 Balance -550 700 -360 Intake: IV 600 Sodium Chloride 0.9% 1, 600 000 ml @ 50 mls/hr IV . Q20H [facility] Rx#:[id number] Oral 100 240 Output: Urine 550 600 Other: Voiding Method Indwelling Catheter Indwelling Catheter Weight 77.111 kg General: well nourished, frail, in mild distress. Vitals reviewed Eyes: PERRL, EOMI, conjunctiva normal HENT: normocephalic, mucus membranes moist. On high flow O2 Neck: supple, no JVD Lungs: normal respiratory effort. Wheezing present CV: Regular rate and rhythm, no murmur. Peripheral pulses 2+ Abdomen: soft, nondistended, no organomegaly Lymph: no cervical or axillary LAD Skin: warm and dry. Neuro: A&Ox3, no focal deficit Results CBC & Chem 7: 07/21/20 07:58 07/21/20 07:58 Labs: Abnormal Lab Results - Last 24 Hours (Table) 07/20/20 07/20/20 07/20/20 Range/Units 22:20 22:20 22:20 RDW 16.3 H (11.5-15.5) % Metamyelocytes # (Man) (0) k/uL Nucleated RBCs (0-0) /100 WBC D-Dimer (<0.60) mg/L FEU ABG pCO2 (35-45) mmHg ABG pO2 (83-108) mmHg ABG HCO3 (21-25) mmol/L ABG Total CO2 (19-24) mmol/L ABG O2 Saturation (94-97) % Sodium 128 L (137-145) mmol/L Carbon Dioxide 16 L (22-30) mmol/L BUN 54 H (7-17) mg/dL Creatinine 1.40 H (0.52-1.04) mg/dL Glucose 106 H (74-99) mg/dL Plasma Lactic Acid Matthew 2.3 H* (0.7-2.0) mmol/L AST 164 H (14-36) U/L ALT 92 H (4-34) U/L Alkaline Phosphatase 299 H (38-126) U/L Troponin I (0.000-0.034) ng/mL Total Protein 5.7 L (6.3-8.2) g/dL Albumin 2.8 L (3.5-5.0) g/dL Urine Protein (Negative) Urine Blood (Negative) Urine RBC (0-5) /hpf Urine WBC (0-5) /hpf Urine Bacteria (None) /hpf Urine Mucus (None) /hpf 07/20/20 07/20/20 07/20/20 Range/Units 22:20 22:20 23:20 RDW (11.5-15.5) % Metamyelocytes # (Man) (0) k/uL Nucleated RBCs (0-0) /100 WBC D-Dimer 3.13 H (<0.60) mg/L FEU ABG pCO2 (35-45) mmHg ABG pO2 (83-108) mmHg ABG HCO3 (21-25) mmol/L ABG Total CO2 (19-24) mmol/L ABG O2 Saturation (94-97) % Sodium (137-145) mmol/L Carbon Dioxide (22-30) mmol/L BUN (7-17) mg/dL Creatinine (0.52-1.04) mg/dL Glucose (74-99) mg/dL Plasma Lactic Acid Matthew (0.7-2.0) mmol/L AST (14-36) U/L ALT (4-34) U/L Alkaline Phosphatase (38-126) U/L Troponin I 0.056 H* (0.000-0.034) ng/mL Total Protein (6.3-8.2) g/dL Albumin (3.5-5.0) g/dL Urine Protein 1+ H (Negative) Urine Blood Large H (Negative) Urine RBC >182 H (0-5) /hpf Urine WBC 6 H (0-5) /hpf Urine Bacteria Rare H (None) /hpf Urine Mucus Rare H (None) /hpf 07/21/20 07/21/20 07/21/20 Range/Units 01:07 01:07 04:30 RDW (11.5-15.5) % Metamyelocytes # (Man) (0) k/uL Nucleated RBCs (0-0) /100 WBC D-Dimer (<0.60) mg/L FEU ABG pCO2 (35-45) mmHg ABG pO2 (83-108) mmHg ABG HCO3 (21-25) mmol/L ABG Total CO2 (19-24) mmol/L ABG O2 Saturation (94-97) % Sodium (137-145) mmol/L Carbon Dioxide (22-30) mmol/L BUN (7-17) mg/dL Creatinine (0.52-1.04) mg/dL Glucose (74-99) mg/dL Plasma Lactic Acid Matthew 2.5 H* (0.7-2.0) mmol/L AST (14-36) U/L ALT (4-34) U/L Alkaline Phosphatase (38-126) U/L Troponin I 0.061 H* 0.074 H* (0.000-0.034) ng/mL Total Protein (6.3-8.2) g/dL Albumin (3.5-5.0) g/dL Urine Protein (Negative) Urine Blood (Negative) Urine RBC (0-5) /hpf Urine WBC (0-5) /hpf Urine Bacteria (None) /hpf Urine Mucus (None) /hpf 07/21/20 07/21/20 07/21/20 Range/Units 04:30 07:36 07:58 RDW 16.7 H (11.5-15.5) % Metamyelocytes # (Man) 0.08 H (0) k/uL Nucleated RBCs 1 H (0-0) /100 WBC D-Dimer (<0.60) mg/L FEU ABG pCO2 (35-45) mmHg ABG pO2 (83-108) mmHg ABG HCO3 (21-25) mmol/L ABG Total CO2 (19-24) mmol/L ABG O2 Saturation (94-97) % Sodium (137-145) mmol/L Carbon Dioxide (22-30) mmol/L BUN (7-17) mg/dL Creatinine (0.52-1.04) mg/dL Glucose (74-99) mg/dL Plasma Lactic Acid Matthew 2.2 H* 2.3 H* (0.7-2.0) mmol/L AST (14-36) U/L ALT (4-34) U/L Alkaline Phosphatase (38-126) U/L Troponin I (0.000-0.034) ng/mL Total Protein (6.3-8.2) g/dL Albumin (3.5-5.0) g/dL Urine Protein (Negative) Urine Blood (Negative) Urine RBC (0-5) /hpf Urine WBC (0-5) /hpf Urine Bacteria (None) /hpf Urine Mucus (None) /hpf 07/21/20 07/21/20 07/21/20 Range/Units 07:58 10:58 15:59 RDW (11.5-15.5) % Metamyelocytes # (Man) (0) k/uL Nucleated RBCs (0-0) /100 WBC D-Dimer (<0.60) mg/L FEU ABG pCO2 (35-45) mmHg ABG pO2 (83-108) mmHg ABG HCO3 (21-25) mmol/L ABG Total CO2 (19-24) mmol/L ABG O2 Saturation (94-97) % Sodium 129 L (137-145) mmol/L Carbon Dioxide 16 L (22-30) mmol/L BUN 53 H (7-17) mg/dL Creatinine 1.32 H (0.52-1.04) mg/dL Glucose (74-99) mg/dL Plasma Lactic Acid Matthew 2.1 H* 2.1 H* (0.7-2.0) mmol/L AST (14-36) U/L ALT (4-34) U/L Alkaline Phosphatase (38-126) U/L Troponin I (0.000-0.034) ng/mL Total Protein (6.3-8.2) g/dL Albumin (3.5-5.0) g/dL Urine Protein (Negative) Urine Blood (Negative) Urine RBC (0-5) /hpf Urine WBC (0-5) /hpf Urine Bacteria (None) /hpf Urine Mucus (None) /hpf 07/21/20 07/21/20 Range/Units 19:12 19:35 RDW (11.5-15.5) % Metamyelocytes # (Man) (0) k/uL Nucleated RBCs (0-0) /100 WBC D-Dimer (<0.60) mg/L FEU ABG pCO2 24 L (35-45) mmHg ABG pO2 60 L (83-108) mmHg ABG HCO3 15 L (21-25) mmol/L ABG Total CO2 16 L (19-24) mmol/L ABG O2 Saturation 89.6 L (94-97) % Sodium (137-145) mmol/L Carbon Dioxide (22-30) mmol/L BUN (7-17) mg/dL Creatinine (0.52-1.04) mg/dL Glucose (74-99) mg/dL Plasma Lactic Acid Matthew 3.0 H* (0.7-2.0) mmol/L AST (14-36) U/L ALT (4-34) U/L Alkaline Phosphatase (38-126) U/L Troponin I (0.000-0.034) ng/mL Total Protein (6.3-8.2) g/dL Albumin (3.5-5.0) g/dL Urine Protein (Negative) Urine Blood (Negative) Urine RBC (0-5) /hpf Urine WBC (0-5) /hpf Urine Bacteria (None) /hpf Urine Mucus (None) /hpf Thrombosis Risk Factor Assmnt - Choose All That Apply Any of the Below Risk Factors Present?: Yes Other Risk Factors: Yes Each Risk Factor Represents 2 Points: Age 61-74 years, Malignancy Other congenital or acquired thrombophilia - If yes, enter type in comment: No Thrombosis Risk Factor Assessment Total Risk Factor Score: 4 Thrombosis Risk Factor Assessment Level: Moderate Risk Assessment and Plan (1) Acute respiratory failure Current Visit: Yes Status: Acute Code(s): J96.00 - ACUTE RESPIRATORY FAILURE, UNSP W HYPOXIA OR HYPERCAPNIA SNOMED Code(s): 25385783 (2) Acute kidney injury Current Visit: Yes Status: Acute Code(s): N17.9 - ACUTE KIDNEY FAILURE, UNSPECIFIED SNOMED Code(s): 26546050 (3) D-dimer, elevated Current Visit: Yes Status: Acute Code(s): R79.89 - OTHER SPECIFIED ABNORMAL FINDINGS OF BLOOD CHEMISTRY SNOMED Code(s): 482419820 (4) Elevated troponin I level Current Visit: Yes Status: Acute Code(s): R77.8 - OTHER SPECIFIED ABNORMALITIES OF PLASMA PROTEINS SNOMED Code(s): 661076262 (5) Metastatic cancer to bone Current Visit: Yes Status: Acute Code(s): C79.51 - SECONDARY MALIGNANT NEOPLASM OF BONE SNOMED Code(s): 51595167 Plan: 1. Acute hypoxic respiratory failure. Likely related to metastatic cancer. Supplemental O2, encourage BIPAP. Consult to pulmonology 2. Acute kidney injury. Consult to nephrology. IVF hydration at 50 ml/hr 3. Bony metastasis of unknown primary. Check tumor markers 4. History of breast cancer
[2020-07-21 22:55] LABS: Albumin 2.7 g/dL (3.5-5.0); Calcium 8.9 mg/dL (8.4-10.2); Potassium 4.3 mmol/L (3.5-5.1); Total Bilirubin 0.7 mg/dL (0.2-1.3); Total Protein 5.6 g/dL (6.3-8.2)
[2020-07-21] MEDS: CEFEPIME 2 GM in SODIUM CHLORIDE 0.9% 100 ML IVPB SCH (23:02)
[2020-07-21 23:13] LABS: Anisocytosis Slight; Basophils % (A) 0 %; Eosinophils % (A) 0 %; HGB 13.5 gm/dL (11.4-16.0); Hypochromasia Slight; Lymphocytes % (A) 14 %; MCH 28.5 pg (25.0-35.0); MCHC 31.3 g/dL (31.0-37.0); MCV 91.1 fL (80.0-100.0); Mean Platelet Volume 8.9; Monocytes # (A) 0.3 k/uL (0-1.0); Monocytes % (A) 4 %; Neutrophils # (A) 5.4 k/uL (1.3-7.7); Neutrophils % (A) 81 %; Platelet Count 147 k/uL (150-450); Poikilocytosis Slight; RBC 4.72 m/uL (3.80-5.40); RDW 16.6 % (11.5-15.5); WBC 6.7 k/uL (3.8-10.6)
[2020-07-21 23:17] LABS: Prothrombin Time 10.8 sec (9.0-12.0)
[2020-07-22] MEDS: SODIUM CHLORIDE 0.9% 1,000 ML IV SCH (04:19)
[2020-07-22] MEDS: CEFEPIME 2 GM in SODIUM CHLORIDE 0.9% 100 ML IVPB SCH (08:12)
[2020-07-22] MEDS ORDERED: ENOXAPARIN 40 MG/0.4 ML SYRINGE SQ SCH (09:00)
[2020-07-22] MEDS ORDERED: SODIUM BICARBONATE TAB 650 MG TAB PO SCH (09:00)
[2020-07-22] MEDS ORDERED: FAMOTIDINE 20 MG TAB PO SCH (09:00)
[2020-07-22] MEDS ORDERED: HEPARIN SODIUM,PORCINE 5,000 UNIT/ML 1 ML VIAL IV PRN (10:22)
[2020-07-22] MEDS ORDERED: HEPARIN SOD,PORK IN 0.45% NACL 25,000 UNIT in 0.45% NACL 1 250ML.BAG IV SCH (10:30)
[2020-07-22 10:56] LABS: Albumin 2.7 g/dL (3.5-5.0); Calcium 9.2 mg/dL (8.4-10.2); Potassium 4.1 mmol/L (3.5-5.1); Total Bilirubin 0.7 mg/dL (0.2-1.3); Total Protein 5.4 g/dL (6.3-8.2)
--- NOTE | 2020-07-22 11:31 | P.CNPUL ---
History of Present Illness Consult date: 07/22/20 Reason for consult: dyspnea, hypoxemia History of present illness: 65-year-old female patient presented to the hospital because of generalized we akness, fatigue, shortness of breath and feeling tired. She was hypoxic in the ED and currently she is on 10 L of oxygen by nasal cannula. Note that the patient has history of the breast cancer and she has metastatic disease including bony metastases patient undergone previous lumpectomy followed by chemotherapy and radiation therapy in 2008 and currently she has metastases to her thoracic and lumbar spine and to her femur. The patient had blood work in the ED and the CBC was unremarkable, sodium level was 129, potassium was 4, creatinine was 1.32, lactic acid level was 2.3, AST of 164, LDL 92, alkaline phosphatase of 299, troponin of 0.05 and 0.06 and 0.07 respectively and a proBNP level of 16,400. Chest x-ray was negative for any acute changes. EKG was showing a normal sinus mechanism and some T-wave inversion over the few days. Computed tomography scan of the chest abdomen and pelvis was done and shows mild pericardial effusion, subsegmental atelectasis in lung bases, and there was a large destructive lesion in the pelvis on the right side which is increased compared to the previous evaluation infection of the right femoral neck that is unchanged. Multiple compression fractions with 1 is section consistent with metastatic disease in the thoracic or lumbar spine. No ascites. Ultrasound Doppler of the lower extremity showing a chronic Review of Systems Review of system was done and the positive findings are almost above history of present illness Past Medical History Past Medical History: Cancer Additional Past Medical History / Comment(s): 1999 R breast cancer with lump ectomy/chemo/radiation and recently found out she has metastasis to bone, recently has been having hematuria/abnormal kidney labs, R femur fracture/July 01 2020-ambulates with walker and was to see orthopedic oncologists at [place] soon. History of Any Multi-Drug Resistant Organisms: None Reported Past Surgical History: Appendectomy, Breast Surgery Additional Past Surgical History / Comment(s): R breast lumpectomy, colonoscopy Past Anesthesia/Blood Transfusion Reactions: No Reported Reaction Smoking Status: Never smoker - Past Family History Father Family Medical History: Cancer Additional Family Medical History / Comment(s): Prostate cancer to bone. Father lived to be 84 yrs old. Father was a smoker/ETOH Mother Family Medical History: Cancer Additional Family Medical History / Comment(s): Mother is from breast to lung cancer at the age of 52 yrs. She was a smoker/ETOH Medications and Allergies Home Medications Medication Instructions Recorded Confirmed Type Ibuprofen [Motrin] 600 mg PO TID PRN 07/20/20 07/20/20 History Nutri-Meds Bovine Thyroid Health 65 mg PO DAILY 07/20/20 07/20/20 History Capsule Selenium 100 mcg PO DAILY 07/20/20 07/20/20 History Allergies Allergy/AdvReac Type Severity Reaction Status Date / Time No Known Allergies Allergy Verified 07/20/20 22:11 Physical Exam Vitals: Vital Signs Temp Pulse Resp BP Pulse Ox 07/22/20 08:00 97.6 F 79 18 91/58 90 L 07/22/20 04:00 97.6 F 82 18 95/63 95 07/22/20 01:58 86 18 07/21/20 23:56 97.6 F 86 18 96/63 91 L 07/21/20 20:00 97.5 F L 85 18 95/58 94 L 07/21/20 19:22 92 L 07/21/20 18:19 97.6 F 89 18 85/63 96 07/21/20 16:00 97.5 F L 70 96/51 98 Intake and Output 07/21/20 07/22/20 07/22/20 22:59 06:59 14:59 Intake Total 1490 240 Output Total 800 375 Balance 690 -375 240 Intake: Intake, IV Titration 1250 Amount Sodium Chloride 0.9% 1, 250 000 ml @ 50 mls/hr IV . Q20H [facility] Rx#:[id number] Sodium Chloride 0.9% 1, 1000 000 ml @ 999 mls/hr IV . Q1H[facility] Rx#:[id number] Oral 240 240 Output: Urine 800 375 Other: Voiding Method Indwelling Catheter Indwelling Catheter Indwelling Catheter Weight 77.1 kg CONSTITUTIONAL: No apparent distress. HEENT: Head is normocephalic. Pupils are equal, round. Sclerae anicteric. Mucous membranes of the mouth are moist. No JVD. No carotid bruit. CHEST EXAMINATION: Lungs are clear to auscultation. No chest wall tenderness is noted on palpation or with deep breathing. HEART EXAMINATION: Regular rate and rhythm. S1, S2 heard. No murmurs, gallops or rub. ABDOMEN: Soft, nontender. Positive bowel sounds. EXTREMITIES: 2+ peripheral pulses, 2+ bilateral lower extremity edema and no calf tenderness. NEUROLOGIC EXAMINATION: Patient is awake, alert and oriented x3. Results - Laboratory Findings CBC and BMP: 07/21/20 22:13 07/22/20 09:50 ABG WBC 6.7 k/uL (3.8-10.6) 07/21/20 22:13 RBC 4.72 m/uL (3.80-5.40) 07/21/20 22:13 Hgb 13.5 gm/dL (11.4-16.0) 07/21/20 22:13 Hct 43.0 % (34.0-46.0) 07/21/20 22:13 MCV 91.1 fL (80.0-100.0) 07/21/20 22:13 MCH 28.5 pg (25.0-35.0) 07/21/20 22:13 MCHC 31.3 g/dL (31.0-37.0) 07/21/20 22:13 RDW 16.6 % (11.5-15.5) H 07/21/20 22:13 Plt Count 147 k/uL (150-450) L 07/21/20 22:13 MPV 8.9 07/21/20 22:13 Neutrophils % 81 % 07/21/20 22:13 Neutrophils % (Manual) 70 % 07/21/20 07:58 Band Neuts % (Manual) 3 % 07/21/20 07:58 Lymphocytes % 14 % 07/21/20 22:13 Lymphocytes % (Manual) 20 % 07/21/20 07:58 Monocytes % 4 % 07/21/20 22:13 Monocytes % (Manual) 5 % 07/21/20 07:58 Eosinophils % 0 % 07/21/20 22:13 Eosinophils % (Manual) 1 % 07/21/20 07:58 Basophils % 0 % 07/21/20 22:13 Metamyelocytes % 1 % 07/21/20 07:58 Neutrophils # 5.4 k/uL (1.3-7.7) 07/21/20 22:13 Neutrophils # (Manual) 5.90 k/uL (1.3-7.7) 07/21/20 07:58 Lymphocytes # 1.0 k/uL (1.0-4.8) 07/21/20 22:13 Lymphocytes # (Manual) 1.64 k/uL (1.0-4.8) 07/21/20 07:58 Monocytes # 0.3 k/uL (0-1.0) 07/21/20 22:13 Monocytes # (Manual) 0.41 k/uL (0-1.0) 07/21/20 07:58 Eosinophils # 0.0 k/uL (0-0.7) 07/21/20 22:13 Eosinophils # (Manual) 0.08 k/uL (0-0.7) 07/21/20 07:58 Basophils # 0.0 k/uL (0-0.2) 07/21/20 22:13 Metamyelocytes # (Man) 0.08 k/uL (0) H 07/21/20 07:58 Nucleated RBCs 1 /100 WBC (0-0) H 07/21/20 07:58 Manual Slide Review Performed 07/21/20 07:58 Polychromasia Present 07/21/20 07:58 Hypochromasia Slight 07/21/20 22:13 Poikilocytosis Slight 07/21/20 22:13 Anisocytosis Slight 07/21/20 22:13 PT 10.8 sec (9.0-12.0) 07/21/20 22:13 INR 1.0 (<1.2) 07/21/20 22:13 APTT 22.3 sec (22.0-30.0) 07/20/20 22:20 D-Dimer 3.13 mg/L FEU (<0.60) H 07/20/20 22:20 Sample Site RAD 07/21/20 19:12 ABG pH 7.41 (7.35-7.45) 07/21/20 19:12 ABG pCO2 24 mmHg (35-45) L 07/21/20 19:12 ABG pO2 60 mmHg (83-108) L 07/21/20 19:12 ABG HCO3 15 mmol/L (21-25) L 07/21/20 19:12 ABG Total CO2 16 mmol/L (19-24) L 07/21/20 19:12 ABG O2 Saturation 89.6 % (94-97) L 07/21/20 19:12 ABG Base Excess -9.4 mmol/L 07/21/20 19:12 Norbert Test Yes 07/21/20 19:12 FiO2 60 % 07/21/20 19:12 Sodium 131 mmol/L (137-145) L 07/22/20 09:50 Potassium 4.1 mmol/L (3.5-5.1) 07/22/20 09:50 Chloride 105 mmol/L (98-107) 07/22/20 09:50 Carbon Dioxide 16 mmol/L (22-30) L 07/22/20 09:50 Anion Gap 10 mmol/L 07/22/20 09:50 BUN 48 mg/dL (7-17) H 07/22/20 09:50 Creatinine 1.30 mg/dL (0.52-1.04) H 07/22/20 09:50 Est GFR (CKD-EPI)AfAm 50 (>60 ml/min/1.73 sqM) 07/22/20 09:50 Est GFR (CKD-EPI)NonAf 43 (>60 ml/min/1.73 sqM) 07/22/20 09:50 Glucose 108 mg/dL (74-99) H 07/22/20 09:50 Lactic Ac Sepsis Rflx Y 07/22/20 03:18 Plasma Lactic Acid Matthew 3.3 mmol/L (0.7-2.0) H* 07/22/20 09:50 Calcium 9.2 mg/dL (8.4-10.2) 07/22/20 09:50 Total Bilirubin 0.7 mg/dL (0.2-1.3) 07/22/20 09:50 AST 275 U/L (14-36) H 07/22/20 09:50 ALT 169 U/L (4-34) H 07/22/20 09:50 Alkaline Phosphatase 303 U/L (38-126) H 07/22/20 09:50 Troponin I 0.064 ng/mL (0.000-0.034) H* 07/21/20 22:13 NT-Pro-B Natriuret Pep 69643 pg/mL 07/20/20 22:20 Total Protein 5.4 g/dL (6.3-8.2) L 07/22/20 09:50 Albumin 2.7 g/dL (3.5-5.0) L 07/22/20 09:50 CA 15-3 Antigen 121.7 U/mL (0.0-32.3) H 07/21/20 07:35 CA 27-29 727.8 U/mL (0.0-38.5) H 07/21/20 07:35 Urine Color Yellow 07/20/20 23:20 Urine Appearance Clear (Clear) 07/20/20 23:20 Urine pH 6.0 (5.0-8.0) 07/20/20 23:20 Ur Specific [place] 1.016 (1.001-1.035) 07/20/20 23:20 Urine Protein 1+ (Negative) H 07/20/20 23:20 Urine Glucose (UA) Negative (Negative) 07/20/20 23:20 Urine Ketones Negative (Negative) 07/20/20 23:20 Urine Blood Large (Negative) H 07/20/20 23:20 Urine Nitrite Negative (Negative) 07/20/20 23:20 Urine Bilirubin Negative (Negative) 07/20/20 23:20 Urine Urobilinogen <2.0 mg/dL (<2.0) 07/20/20 23:20 Ur Leukocyte Esterase Negative (Negative) 07/20/20 23:20 Urine RBC >182 /hpf (0-5) H 07/20/20 23:20 Urine WBC 6 /hpf (0-5) H 07/20/20 23:20 Ur Squamous Epith Cells <1 /hpf (0-4) 07/20/20 23:20 Urine Bacteria Rare /hpf (None) H 07/20/20 23:20 Urine Mucus Rare /hpf (None) H 07/20/20 23:20 PT/INR, D-dimer PT 10.8 sec (9.0-12.0) 07/21/20 22:13 INR 1.0 (<1.2) 07/21/20 22:13 D-Dimer 3.13 mg/L FEU (<0.60) H 07/20/20 22:20 Abnormal lab findings: Abnormal Labs 07/20/20 07/20/20 07/20/20 22:20 22:20 22:20 RDW 16.3 H Plt Count Metamyelocytes # (Man) Nucleated RBCs D-Dimer ABG pCO2 ABG pO2 ABG HCO3 ABG Total CO2 ABG O2 Saturation Sodium 128 L Carbon Dioxide 16 L BUN 54 H Creatinine 1.40 H Glucose 106 H Plasma Lactic Acid Matthew 2.3 H* AST 164 H ALT 92 H Alkaline Phosphatase 299 H Troponin I Total Protein 5.7 L Albumin 2.8 L CA 15-3 Antigen CA 27-29 Urine Protein Urine Blood Urine RBC Urine WBC Urine Bacteria Urine Mucus 07/20/20 07/20/20 07/20/20 22:20 22:20 23:20 RDW Plt Count Metamyelocytes # (Man) Nucleated RBCs D-Dimer 3.13 H ABG pCO2 ABG pO2 ABG HCO3 ABG Total CO2 ABG O2 Saturation Sodium Carbon Dioxide BUN Creatinine Glucose Plasma Lactic Acid Matthew AST ALT Alkaline Phosphatase Troponin I 0.056 H* Total Protein Albumin CA 15-3 Antigen CA 27-29 Urine Protein 1+ H Urine Blood Large H Urine RBC >182 H Urine WBC 6 H Urine Bacteria Rare H Urine Mucus Rare H 07/21/20 07/21/20 07/21/20 01:07 01:07 04:30 RDW Plt Count Metamyelocytes # (Man) Nucleated RBCs D-Dimer ABG pCO2 ABG pO2 ABG HCO3 ABG Total CO2 ABG O2 Saturation Sodium Carbon Dioxide BUN Creatinine Glucose Plasma Lactic Acid Matthew 2.5 H* AST ALT Alkaline Phosphatase Troponin I 0.061 H* 0.074 H* Total Protein Albumin CA 15-3 Antigen CA 27-29 Urine Protein Urine Blood Urine RBC Urine WBC Urine Bacteria Urine Mucus 07/21/20 07/21/20 07/21/20 04:30 07:35 07:35 RDW Plt Count Metamyelocytes # (Man) Nucleated RBCs D-Dimer ABG pCO2 ABG pO2 ABG HCO3 ABG Total CO2 ABG O2 Saturation Sodium Carbon Dioxide BUN Creatinine Glucose Plasma Lactic Acid Matthew 2.2 H* AST ALT Alkaline Phosphatase Troponin I Total Protein Albumin CA 15-3 Antigen 121.7 H CA 27-29 727.8 H Urine Protein Urine Blood Urine RBC Urine WBC Urine Bacteria Urine Mucus 07/21/20 07/21/20 07/21/20 07:36 07:58 07:58 RDW 16.7 H Plt Count Metamyelocytes # (Man) 0.08 H Nucleated RBCs 1 H D-Dimer ABG pCO2 ABG pO2 ABG HCO3 ABG Total CO2 ABG O2 Saturation Sodium 129 L Carbon Dioxide 16 L BUN 53 H Creatinine 1.32 H Glucose Plasma Lactic Acid Matthew 2.3 H* AST ALT Alkaline Phosphatase Troponin I Total Protein Albumin CA 15-3 Antigen CA 27-29 Urine Protein Urine Blood Urine RBC Urine WBC Urine Bacteria Urine Mucus 07/21/20 07/21/20 07/21/20 10:58 15:59 19:12 RDW Plt Count Metamyelocytes # (Man) Nucleated RBCs D-Dimer ABG pCO2 24 L ABG pO2 60 L ABG HCO3 15 L ABG Total CO2 16 L ABG O2 Saturation 89.6 L Sodium Carbon Dioxide BUN Creatinine Glucose Plasma Lactic Acid Matthew 2.1 H* 2.1 H* AST ALT Alkaline Phosphatase Troponin I Total Protein Albumin CA 15-3 Antigen CA 27-29 Urine Protein Urine Blood Urine RBC Urine WBC Urine Bacteria Urine Mucus 07/21/20 07/21/20 07/21/20 19:35 22:13 22:13 RDW 16.6 H Plt Count 147 L Metamyelocytes # (Man) Nucleated RBCs D-Dimer ABG pCO2 ABG pO2 ABG HCO3 ABG Total CO2 ABG O2 Saturation Sodium 130 L Carbon Dioxide 16 L BUN 49 H Creatinine 1.20 H Glucose 116 H Plasma Lactic Acid Matthew 3.0 H* AST 189 H ALT 110 H Alkaline Phosphatase 274 H Troponin I Total Protein 5.6 L Albumin 2.7 L CA 15-3 Antigen CA 27-29 Urine Protein Urine Blood Urine RBC Urine WBC Urine Bacteria Urine Mucus 07/21/20 07/21/20 07/22/20 22:13 22:13 01:57 RDW Plt Count Metamyelocytes # (Man) Nucleated RBCs D-Dimer ABG pCO2 ABG pO2 ABG HCO3 ABG Total CO2 ABG O2 Saturation Sodium Carbon Dioxide BUN Creatinine Glucose Plasma Lactic Acid Matthew 2.7 H* 3.5 H* AST ALT Alkaline Phosphatase Troponin I 0.064 H* Total Protein Albumin CA 15-3 Antigen CA 27-29 Urine Protein Urine Blood Urine RBC Urine WBC Urine Bacteria Urine Mucus 07/22/20 07/22/20 09:50 09:50 RDW Plt Count Metamyelocytes # (Man) Nucleated RBCs D-Dimer ABG pCO2 ABG pO2 ABG HCO3 ABG Total CO2 ABG O2 Saturation Sodium 131 L Carbon Dioxide 16 L BUN 48 H Creatinine 1.30 H Glucose 108 H Plasma Lactic Acid Matthew 3.3 H* AST 275 H ALT 169 H Alkaline Phosphatase 303 H Troponin I Total Protein 5.4 L Albumin 2.7 L CA 15-3 Antigen CA 27-29 Urine Protein Urine Blood Urine RBC Urine WBC Urine Bacteria Urine Mucus - Diagnostic Findings Chest x-ray: image reviewed CT scan - chest: image reviewed
[2020-07-22 11:39] LABS: Anisocytosis Slight; Basophils % (A) 0 %; Eosinophils % (A) 0 %; HCT 38.8 % (34.0-46.0); HGB 12.2 gm/dL (11.4-16.0); Hypochromasia Slight; Lymphocytes # (A) 1.3 k/uL (1.0-4.8); Lymphocytes % (A) 15 %; MCH 28.4 pg (25.0-35.0); MCHC 31.3 g/dL (31.0-37.0); MCV 90.6 fL (80.0-100.0); Mean Platelet Volume 9.6; Monocytes # (A) 0.3 k/uL (0-1.0); Monocytes % (A) 3 %; Neutrophils % (A) 81 %; Platelet Count 161 k/uL (150-450); Poikilocytosis Slight; RBC 4.28 m/uL (3.80-5.40); WBC 8.7 k/uL (3.8-10.6)
[2020-07-22 11:50] LABS: INR 1.1 (<1.2); Partial Thromboplastin Time 23.3 sec (22.0-30.0); Prothrombin Time 11.2 sec (9.0-12.0)
[2020-07-22 12:43] LABS: ABG Base Excess -11.6 mmol/L; ABG HCO3 13 mmol/L (21-25); ABG Oxygen Saturation 88.9 % (94-97); ABG PCO2 21 mmHg (35-45); ABG PO2 60 mmHg (83-108); ABG TCO2 14 mmol/L (19-24); Allen Test Performed? Yes
--- NOTE | 2020-07-22 12:56 | P.PN ---
Subjective Progress Note Date: 07/22/20 Principal diagnosis: Metastatic cancer and acute respiratory failure Still on 10 liters high flow and in taking shallow breaths. Unable to undergo tissue biopsy Objective - Vital Signs Vital signs: Vital Signs Temp 97.5 F L 07/22/20 11:50 Pulse 84 07/22/20 11:50 Resp 16 07/22/20 11:50 BP 81/62 07/22/20 11:50 Pulse Ox 92 L 07/22/20 11:50 Intake & Output 07/21/20 07/22/20 07/22/20 18:59 06:59 18:59 Intake Total 940 1250 240 Output Total 600 575 Balance 340 675 240 Weight 77.111 kg 77.1 kg Intake: IV 600 Sodium Chloride 0.9% 1, 600 000 ml @ 50 mls/hr IV . Q20H [facility] Rx#:[id number] Intake, IV Titration 1250 Amount Sodium Chloride 0.9% 1, 250 000 ml @ 50 mls/hr IV . Q20H [facility] Rx#:[id number] Sodium Chloride 0.9% 1, 1000 000 ml @ 999 mls/hr IV . Q1H1M [facility] Rx#:[id number] Oral 340 240 Output: Urine 600 575 Other: Voiding Method Indwelling Catheter Indwelling Catheter Indwelling Catheter - Exam - Constitutional General appearance: cooperative, mild distress - EENT Eyes: edentulous ENT: NA/AT, normal oropharynx - Respiratory Respiratory: bilateral: diminished - Cardiovascular Rhythm: regularly irregular - Gastrointestinal General gastrointestinal: distended, soft - Integumentary Integumentary: pale - Neurologic keny - Musculoskeletal Limited ROM Musculoskeletal: generalized weakness - Psychiatric Psychiatric: A&O x's 3, appropriate affect, intact judgment & insight - Labs CBC & Chem 7: 07/22/20 11:13 07/22/20 09:50 Labs: Abnormal Lab Results - Last 24 Hours (Table) 07/21/20 07/21/20 07/21/20 Range/Units 07:35 07:35 15:59 RDW (11.5-15.5) % Plt Count (150-450) k/uL ABG pCO2 (35-45) mmHg ABG pO2 (83-108) mmHg ABG HCO3 (21-25) mmol/L ABG Total CO2 (19-24) mmol/L ABG O2 Saturation (94-97) % Sodium (137-145) mmol/L Carbon Dioxide (22-30) mmol/L BUN (7-17) mg/dL Creatinine (0.52-1.04) mg/dL Glucose (74-99) mg/dL Plasma Lactic Acid Matthew 2.1 H* (0.7-2.0) mmol/L AST (14-36) U/L ALT (4-34) U/L Alkaline Phosphatase (38-126) U/L Troponin I (0.000-0.034) ng/mL Total Protein (6.3-8.2) g/dL Albumin (3.5-5.0) g/dL CA 15-3 Antigen 121.7 H (0.0-32.3) U/mL CA 27-29 727.8 H (0.0-38.5) U/mL 07/21/20 07/21/20 07/21/20 Range/Units 19:12 19:35 22:13 RDW 16.6 H (11.5-15.5) % Plt Count 147 L (150-450) k/uL ABG pCO2 24 L (35-45) mmHg ABG pO2 60 L (83-108) mmHg ABG HCO3 15 L (21-25) mmol/L ABG Total CO2 16 L (19-24) mmol/L ABG O2 Saturation 89.6 L (94-97) % Sodium (137-145) mmol/L Carbon Dioxide (22-30) mmol/L BUN (7-17) mg/dL Creatinine (0.52-1.04) mg/dL Glucose (74-99) mg/dL Plasma Lactic Acid Matthew 3.0 H* (0.7-2.0) mmol/L AST (14-36) U/L ALT (4-34) U/L Alkaline Phosphatase (38-126) U/L Troponin I (0.000-0.034) ng/mL Total Protein (6.3-8.2) g/dL Albumin (3.5-5.0) g/dL CA 15-3 Antigen (0.0-32.3) U/mL CA 27-29 (0.0-38.5) U/mL 07/21/20 07/21/20 07/21/20 Range/Units 22:13 22:13 22:13 RDW (11.5-15.5) % Plt Count (150-450) k/uL ABG pCO2 (35-45) mmHg ABG pO2 (83-108) mmHg ABG HCO3 (21-25) mmol/L ABG Total CO2 (19-24) mmol/L ABG O2 Saturation (94-97) % Sodium 130 L (137-145) mmol/L Carbon Dioxide 16 L (22-30) mmol/L BUN 49 H (7-17) mg/dL Creatinine 1.20 H (0.52-1.04) mg/dL Glucose 116 H (74-99) mg/dL Plasma Lactic Acid Matthew 2.7 H* (0.7-2.0) mmol/L AST 189 H (14-36) U/L ALT 110 H (4-34) U/L Alkaline Phosphatase 274 H (38-126) U/L Troponin I 0.064 H* (0.000-0.034) ng/mL Total Protein 5.6 L (6.3-8.2) g/dL Albumin 2.7 L (3.5-5.0) g/dL CA 15-3 Antigen (0.0-32.3) U/mL CA 27-29 (0.0-38.5) U/mL 07/22/20 07/22/20 07/22/20 Range/Units 01:57 09:50 09:50 RDW (11.5-15.5) % Plt Count (150-450) k/uL ABG pCO2 (35-45) mmHg ABG pO2 (83-108) mmHg ABG HCO3 (21-25) mmol/L ABG Total CO2 (19-24) mmol/L ABG O2 Saturation (94-97) % Sodium 131 L (137-145) mmol/L Carbon Dioxide 16 L (22-30) mmol/L BUN 48 H (7-17) mg/dL Creatinine 1.30 H (0.52-1.04) mg/dL Glucose 108 H (74-99) mg/dL Plasma Lactic Acid Matthew 3.5 H* 3.3 H* (0.7-2.0) mmol/L AST 275 H (14-36) U/L ALT 169 H (4-34) U/L Alkaline Phosphatase 303 H (38-126) U/L Troponin I (0.000-0.034) ng/mL Total Protein 5.4 L (6.3-8.2) g/dL Albumin 2.7 L (3.5-5.0) g/dL CA 15-3 Antigen (0.0-32.3) U/mL CA 27-29 (0.0-38.5) U/mL 07/22/20 07/22/20 Range/Units 11:13 12:39 RDW 17.0 H (11.5-15.5) % Plt Count (150-450) k/uL ABG pCO2 21 L (35-45) mmHg ABG pO2 60 L (83-108) mmHg ABG HCO3 13 L (21-25) mmol/L ABG Total CO2 14 L (19-24) mmol/L ABG O2 Saturation 88.9 L (94-97) % Sodium (137-145) mmol/L Carbon Dioxide (22-30) mmol/L BUN (7-17) mg/dL Creatinine (0.52-1.04) mg/dL Glucose (74-99) mg/dL Plasma Lactic Acid Matthew (0.7-2.0) mmol/L AST (14-36) U/L ALT (4-34) U/L Alkaline Phosphatase (38-126) U/L Troponin I (0.000-0.034) ng/mL Total Protein (6.3-8.2) g/dL Albumin (3.5-5.0) g/dL CA 15-3 Antigen (0.0-32.3) U/mL CA 27-29 (0.0-38.5) U/mL Microbiology - Last 24 Hours (Table) 07/20/20 22:30 Blood Culture - Preliminary Blood No Growth after 24 hours 07/20/20 22:17 Blood Culture - Preliminary Blood No Growth after 24 hours Assessment and Plan (1) Metastatic cancer to bone Current Visit: Yes Status: Acute Code(s): C79.51 - SECONDARY MALIGNANT NEOPLASM OF BONE SNOMED Code(s): 71670015 (2) History of breast cancer Current Visit: Yes Status: Acute Code(s): Z85.3 - PERSONAL HISTORY OF MALIGNANT NEOPLASM OF BREAST SNOMED Code(s): 024184905 Plan: Assessment and Recommendations: I spoke with Dr. Anam Smith (ortho/onc) and together on facetime we reviewed images from PET scan. At this time the recommendation is to obtain a biopsy of the right sacral lesion as this is unable to be confirmed breast without tissue pathology and remote breast cancer history. I have placed an order for Interventional radiology to move forward with biopsy. - Depending on the results will determine if chemotherapy and radiation will be needed prior to surgical intervention Will also fully stage with imaging of the brain Will ask for MRI discs to be obtained from [facility] and sent to Dr. Smith at [facility] to further review. Will repeat Tumor markers and Hepatic function COntinue work-up for increased shortness of breath and obtain bilateral axilla and breast ultrasound as no primary tumor noted on PET or CT scans Echocardiogram revealing right sided heart failure, however evidence per imaging not consistent. CTA negative for PE though thought that likely pulm embolism and chronic LE DVT , therefore benefit of heparin drip outweigh risk at this time. Will need to stabailize patient prior to further work-up MRI brain and Bone Biopsy Long discussion with sister and patient regarding code status yesterday, understanding was not totally confirmed despite the long counseling and options. Remediation and addressing this again is resonable as overall prognosis is poor and sister says she does not want to undergo chemotherapy if that is only plan for cancer once a diagnosis is confirmed Overalll prognosis is poor, await stabilization of patient prior to further diagnostics. Physician attest: i have completed the full history and physical and agree with above dictation, dictated as a scribe.
[2020-07-22 13:45] VITALS: TEMP 94.2
[2020-07-22] MEDS ORDERED: MORPHINE SULFATE 4 MG/ML SYRINGE IVP STA (14:04)
--- NOTE | 2020-07-22 14:27 | CT ---
EXAMINATION TYPE: CT biopsy bone superficial DATE OF EXAM: 07/22/2020 COMPARISON: 07/20/2020 HISTORY: Right pelvic wall mass CT DLP: 772 mGycm The procedure is discussed with the patient, the risks, complications, benefits and alternatives, wer e discussed and any questions were answered. Informed consent was obtained. The patient is placed s upine on the CT table, prepped and draped in the usual sterile fashion. Utilizing a 18-gauge core biopsy needle access into the requested right pelvic mass was achieved with single sample obtained. Pathology pending. All elements of maximal barrier technique were utilized . The patient remained stable throughout the procedure with no immediate postprocedural complication . IMPRESSION: 1. Successful CT guided core biopsy right pelvic mass
[2020-07-22 14:44] VITALS: RESP 22
[2020-07-22 14:45] VITALS: BP 90/61; PULSE 62
--- NOTE | 2020-07-22 16:05 | P.PN ---
Subjective Progress Note Date: 07/22/20 Migdalia Hooker is a 65 yo F with PMH of breast cancer s/p lumpectomy, recent recurrence of cancer with multiple bony metastasis who presented to the ED with shortness of breath and worsened malaise. She states this has been going on for a few days. She has had worsening hip pain since last fall and recently established care and was found to have destructive lesion on imaging. She had just been referred to Oncology and had her first appointment last week. Currently she is on high flow O2, has not been tolerating BIPAP. On presentation SpO2 78% on RA, WBC 7.7, D-dimer 3.13, Cr 1.4, lactic 2.2, BNP 14k, trop mildly elevated. CT chest/abd/pelvis showing multiple destructive bony lesions, no soft tissue abnormality, no PE. 07/23/2019 patient tired this morning, reports rough night with shortness of b reath. Sodium Bicarb added to med regimen secondary to bicarbonate level 16 Denies chest pain with deep inspiration. Patient appears extremely fatigued. Requiring 10 L high flow nasal cannula to maintain O2 sats in the low 90s. T bili within normal limits, LFTs worsening. Elevated CA 15-3 antigen and CA 27- 29. Creatinine 1.30. Objective - Vital Signs Vital signs: Vital Signs Temp 94.2 F L 07/22/20 13:41 Pulse 62 07/22/20 14:20 Resp 22 07/22/20 14:20 BP 90/61 07/22/20 14:20 Pulse Ox 92 L 07/22/20 14:20 Intake & Output 07/21/20 07/22/20 07/22/20 18:59 06:59 18:59 Intake Total 940 1250 240 Output Total 600 575 225 Balance 340 675 15 Weight 77.111 kg 77.1 kg Intake: IV 600 Sodium Chloride 0.9% 1, 600 000 ml @ 50 mls/hr IV . Q20H [facility] Rx#:[id number] Intake, IV Titration 1250 Amount Sodium Chloride 0.9% 1, 250 000 ml @ 50 mls/hr IV . Q20H [facility] Rx#:[id number] Sodium Chloride 0.9% 1, 1000 000 ml @ 999 mls/hr IV . Q1H1M [facility] Rx#:[id number] Oral 340 240 Output: Urine 600 575 225 Other: Voiding Method Indwelling Catheter Indwelling Catheter Indwelling Catheter - Exam General: frail, sleepy, Vitals reviewed Eyes: PERRL, EOMI, conjunctiva normal HENT: normocephalic, mucus membranes moist. On high flow O2 Neck: supple, no JVD Lungs: normal respiratory effort. Essentially clear CV: Regular rate and rhythm, no murmur. Peripheral pulses 2+ Abdomen: soft, nondistended, no organomegaly, positive bowel sounds Skin: warm and dry. Neuro: A&Ox3, no focal deficits. - Labs CBC & Chem 7: 07/22/20 11:13 07/22/20 09:50 Labs: Abnormal Lab Results - Last 24 Hours (Table) 07/21/20 07/21/20 07/21/20 Range/Units 07:35 07:35 15:59 RDW (11.5-15.5) % Plt Count (150-450) k/uL ABG pCO2 (35-45) mmHg ABG pO2 (83-108) mmHg ABG HCO3 (21-25) mmol/L ABG Total CO2 (19-24) mmol/L ABG O2 Saturation (94-97) % Sodium (137-145) mmol/L Carbon Dioxide (22-30) mmol/L BUN (7-17) mg/dL Creatinine (0.52-1.04) mg/dL Glucose (74-99) mg/dL Plasma Lactic Acid Matthew 2.1 H* (0.7-2.0) mmol/L AST (14-36) U/L ALT (4-34) U/L Alkaline Phosphatase (38-126) U/L Troponin I (0.000-0.034) ng/mL Total Protein (6.3-8.2) g/dL Albumin (3.5-5.0) g/dL CA 15-3 Antigen 121.7 H (0.0-32.3) U/mL CA 27-29 727.8 H (0.0-38.5) U/mL 07/21/20 07/21/20 07/21/20 Range/Units 19:12 19:35 22:13 RDW 16.6 H (11.5-15.5) % Plt Count 147 L (150-450) k/uL ABG pCO2 24 L (35-45) mmHg ABG pO2 60 L (83-108) mmHg ABG HCO3 15 L (21-25) mmol/L ABG Total CO2 16 L (19-24) mmol/L ABG O2 Saturation 89.6 L (94-97) % Sodium (137-145) mmol/L Carbon Dioxide (22-30) mmol/L BUN (7-17) mg/dL Creatinine (0.52-1.04) mg/dL Glucose (74-99) mg/dL Plasma Lactic Acid Matthew 3.0 H* (0.7-2.0) mmol/L AST (14-36) U/L ALT (4-34) U/L Alkaline Phosphatase (38-126) U/L Troponin I (0.000-0.034) ng/mL Total Protein (6.3-8.2) g/dL Albumin (3.5-5.0) g/dL CA 15-3 Antigen (0.0-32.3) U/mL CA 27-29 (0.0-38.5) U/mL 07/21/20 07/21/20 07/21/20 Range/Units 22:13 22:13 22:13 RDW (11.5-15.5) % Plt Count (150-450) k/uL ABG pCO2 (35-45) mmHg ABG pO2 (83-108) mmHg ABG HCO3 (21-25) mmol/L ABG Total CO2 (19-24) mmol/L ABG O2 Saturation (94-97) % Sodium 130 L (137-145) mmol/L Carbon Dioxide 16 L (22-30) mmol/L BUN 49 H (7-17) mg/dL Creatinine 1.20 H (0.52-1.04) mg/dL Glucose 116 H (74-99) mg/dL Plasma Lactic Acid Matthew 2.7 H* (0.7-2.0) mmol/L AST 189 H (14-36) U/L ALT 110 H (4-34) U/L Alkaline Phosphatase 274 H (38-126) U/L Troponin I 0.064 H* (0.000-0.034) ng/mL Total Protein 5.6 L (6.3-8.2) g/dL Albumin 2.7 L (3.5-5.0) g/dL CA 15-3 Antigen (0.0-32.3) U/mL CA 27-29 (0.0-38.5) U/mL 07/22/20 07/22/20 07/22/20 Range/Units 01:57 09:50 09:50 RDW (11.5-15.5) % Plt Count (150-450) k/uL ABG pCO2 (35-45) mmHg ABG pO2 (83-108) mmHg ABG HCO3 (21-25) mmol/L ABG Total CO2 (19-24) mmol/L ABG O2 Saturation (94-97) % Sodium 131 L (137-145) mmol/L Carbon Dioxide 16 L (22-30) mmol/L BUN 48 H (7-17) mg/dL Creatinine 1.30 H (0.52-1.04) mg/dL Glucose 108 H (74-99) mg/dL Plasma Lactic Acid Matthew 3.5 H* 3.3 H* (0.7-2.0) mmol/L AST 275 H (14-36) U/L ALT 169 H (4-34) U/L Alkaline Phosphatase 303 H (38-126) U/L Troponin I (0.000-0.034) ng/mL Total Protein 5.4 L (6.3-8.2) g/dL Albumin 2.7 L (3.5-5.0) g/dL CA 15-3 Antigen (0.0-32.3) U/mL CA 27-29 (0.0-38.5) U/mL 07/22/20 07/22/20 07/22/20 Range/Units 11:13 12:39 13:00 RDW 17.0 H (11.5-15.5) % Plt Count (150-450) k/uL ABG pCO2 21 L (35-45) mmHg ABG pO2 60 L (83-108) mmHg ABG HCO3 13 L (21-25) mmol/L ABG Total CO2 14 L (19-24) mmol/L ABG O2 Saturation 88.9 L (94-97) % Sodium (137-145) mmol/L Carbon Dioxide (22-30) mmol/L BUN (7-17) mg/dL Creatinine (0.52-1.04) mg/dL Glucose (74-99) mg/dL Plasma Lactic Acid Matthew 3.8 H* (0.7-2.0) mmol/L AST (14-36) U/L ALT (4-34) U/L Alkaline Phosphatase (38-126) U/L Troponin I (0.000-0.034) ng/mL Total Protein (6.3-8.2) g/dL Albumin (3.5-5.0) g/dL CA 15-3 Antigen (0.0-32.3) U/mL CA 27-29 (0.0-38.5) U/mL Microbiology - Last 24 Hours (Table) 07/20/20 22:30 Blood Culture - Preliminary Blood No Growth after 24 hours 07/20/20 22:17 Blood Culture - Preliminary Blood No Growth after 24 hours Assessment and Plan Assessment: (1) Acute respiratory failure multifactorial secondary to fluid overload related to possibly acute CHF exacerbation, diastolic dysfunction, possibly small PEs not detected on radiology studies, malignancy with metastatic disease Current Visit: Yes Status: Acute Code(s): J96.00 - ACUTE RESPIRATORY FAILURE, UNSP W HYPOXIA OR HYPERCAPNIA SNOMED Code(s): 85342750 (2) Acute kidney injury Current Visit: Yes Status: Acute Code(s): N17.9 - ACUTE KIDNEY FAILURE, UNSPECIFIED SNOMED Code(s): 57475220 (3) D-dimer, elevated Current Visit: Yes Status: Acute Code(s): R79.89 - OTHER SPECIFIED ABNORMAL FINDINGS OF BLOOD CHEMISTRY SNOMED Code(s): 964420564 (4) Elevated troponin I level Current Visit: Yes Status: Acute Code(s): R77.8 - OTHER SPECIFIED ABNORMALITIES OF PLASMA PROTEINS SNOMED Code(s): 240208952 (5) Metastatic cancer to bone, redemonstrated pathological T7 compression fracture in L1 destructive lesions Current Visit: Yes Status: Acute Code(s): C79.51 - SECONDARY MALIGNANT NEOPLASM OF BONE SNOMED Code(s): 74841815 (6) history of breast cancer 2008 (7) moderate to severe pulmonary hypertension (8) severe tricuspid regurgitation (9) abnormal troponins, cardiology following (10) medically debilitated (11) lactic acidosis Plan: Continue on current medication regime ,monitoring and symptomatic treatment. Discussed with oncology :Though radiology films may not show PE, suspected pulmonary hypertension secondary to small PEs in a patient who has been bedridden and with severe tricuspid regurgitation, chronic DVT of LE, anticoagulation with heparin drip initiated. Eventually patient will need to proceed to orthopedic /oncology services at [facility] for biopsy of the right sacral lesion to confirm breast CA. Brain MRI ordered. Follow closely w ith cardiology and oncology. Prognosis guarded given multiple complex medical issues. The impression and plan of care has been dictated as directed. : I performed a history and examination of this patient, discussed the same with the dictator. I agree with the dictator's note ,documented as a scribe. Any additional findings or plans will be noted.
--- NOTE | 2020-07-22 16:35 | CONS ---
CONSULTATION REASON FOR CONSULT: Renal failure. HISTORY OF PRESENT ILLNESS: Patient is a 65-year-old female who was admitted to the hospital with complaints of shortness of breath. The patient has an underlying history of breast cancer with recurrence and metastasis to the bone. She has also not been able to eat much and is complaining of some nausea. Patient denies any prior history of kidney diseases. Her serum creatinine was 1.4 mg/dL on initial admission. It did decrease to 1.3. The patient was also hyponatremic with sodium of 128 on initial admission. It is up to 131. She is currently maintained on IV fluids in the form of normal saline at about 50 mL an hour. The patient states she did have some oral intake and was able to keep it down. No history of use of thiazide diuretics prior to admission. No history of diarrhea, nausea or vomiting. PAST MEDICAL HISTORY: Significant for metastatic breast cancer, history of lumpectomy, chemotherapy, radiation therapy. PAST SURGICAL HISTORY: Appendectomy, right breast lumpectomy, colonoscopy. SOCIAL HISTORY: Negative for smoking, drug abuse or alcohol abuse. MEDICATIONS: Medications prior to admission included Motrin, selenium. ALLERGIES: None. PHYSICAL EXAMINATION: Patient is comfortable, awake. She is not in any acute distress. Blood pressure was 94/64, heart rate 61 per minute. She is afebrile. EXAMINATION OF THE HEART: S1, S2. EXAMINATION OF THE LUNGS: Decreased breath sounds at bases. Abdomen is soft, nontender. Examination of lower extremities shows no significant edema. HAT BLOCK BENCH HAND exam grossly intact. LABS: Labs show sodium of 131, potassium 4.1, chloride 105, CO2 is 16. BUN 48, creatinine 1.3. Lactic acid was 3.8. UA shows 1+ protein, large blood, WBCs 6, RBCs more than 100. The patient did have a chest CTA done yesterday which did not reveal any evidence of PE. No significant pleural effusions noted on the chest CT as well. ASSESSMENT: 1. Acute kidney injury versus chronic kidney disease. Serum creatinine staying about 1.2-1.4 mg/dL. No previous labs available for comparison. Currently patient has good urine output. She has an indwelling Pina catheter with 24-hour output documented at 1175 mL for last [address] of the abdomen does not show any evidence of hydronephrosis. 2. Metastatic breast cancer. 3. Shortness of breath with no significant congestive heart failure noted on chest x- ray, possible mild fluid overload. Currently patient is maintained on gentle IV hydration, which we can hold. She did receive fluid boluses on initial admission. 4. Hematuria, currently with indwelling Pina catheter. 5. Metabolic acidosis associated with lactic acidosis. PLAN: Hold IV fluids. Encourage increased oral intake. Continue with sodium bicarb for now. Overall prognosis is guarded given the significant metastatic cancer. Thank you for this consultation. We will continue to follow the patient with you during her hospitalization. MMODL / IJN: [id number] /
[2020-07-22] MEDS ORDERED: CEFEPIME 2 GM in SODIUM CHLORIDE 0.9% 100 ML IVPB SCH (21:00)
--- NOTE | 2020-07-28 22:40 | P.DS ---
Providers Date of admission: 07/21/20 00:27 Attending physician: Adis Hooper MD Consults: 07/21/20 00:28 Consult Physician Routine Consulting Provider: Rosendo Ruiz Consult Reason/Comments: elevated troponin Do you want consulting provider notified?: Yes Consult Physician Routine Consulting Provider: Roman Sanders Consult Reason/Comments: Your patient Do you want consulting provider notified?: Yes 07/21/20 19:37 Consult Physician Routine Consulting Provider: Lauren Gan Consult Reason/Comments: ELIZABETH Do you want consulting provider notified?: Yes 07/21/20 21:30 Consult Physician Routine Consulting Provider: Hansa Bragg Consult Reason/Comments: Respiratory Failure Do you want consulting provider notified?: Yes, Notify in am Primary care physician: Adis Hooper MD - Discharge Diagnosis(es) (1) Acute respiratory failure Status: Acute (2) Acute kidney injury Status: Acute (3) D-dimer, elevated Status: Acute (4) Elevated troponin I level Status: Acute (5) Metastatic cancer to bone Status: Acute Hospital Course: Migdalia Hooker is a 65 yo F with PMH of breast cancer s/p lumpectomy, recent recurrence of cancer with multiple bony metastasis who presented to the ED with shortness of breath and worsened malaise. She states this has been going on for a few days. She has had worsening hip pain since last fall and recently established care and was found to have destructive lesion on imaging. She had just been referred to Oncology and had her first appointment last week. Currently she is on high flow O2, has not been tolerating BIPAP. On presentation SpO2 78% on RA, WBC 7.7, D-dimer 3.13, Cr 1.4, lactic 2.2, BNP 14k, trop mildly elevated. CT chest/abd/pelvis showing multiple destructive bony lesions, no soft tissue abnormality, no PE. 07/23/2019 patient tired this morning, reports rough night with shortness of breath. Sodium Bicarb added to med regimen secondary to bicarbonate level 16 Denies chest pain with deep inspiration. Patient appears extremely fatigued. Requiring 10 L high flow nasal cannula to maintain O2 sats in the low 90s. T bili within normal limits, LFTs worsening. Elevated CA 15-3 antigen and CA 27- 29. Creatinine 1.30. Pt with worsening respiratory failure and code blue called. She was found to be in cardiac arrest. Pt subsequently . Patient Condition at Discharge: Serious Plan - Discharge Summary Discharge Rx Participant: No New Discharge Prescriptions: No Action Nutri-Meds Bovine Thyroid Health Capsule 65 mg PO DAILY Selenium 100 mcg PO DAILY Ibuprofen [Motrin] 600 mg PO TID PRN PRN Reason: Pain Discharge Medication List Ibuprofen [Motrin] 600 mg PO TID PRN 07/20/20 [History] Nutri-Meds Bovine Thyroid Health Capsule 65 mg PO DAILY 07/20/20 [History] Selenium 100 mcg PO DAILY 07/20/20 [History] Follow up Appointment(s)/Referral(s): Adis Hooper MD [Primary Care Provider] - 1-2 days [facility] Visiting Nurse, [NON-STAFF] - Discharge Disposition: - Preliminary Cause of Preliminary Cause of : breast cancer
== END 2020-07-22 20:37 | disposition expired | DRG 477 ==
LOC: EC 21:18 → 3SCARD 07-21 00:27
PROVIDERS: ADMIT Family Medicine; ATTEND Family Medicine
PROC: 5A09357 Assistance with Respiratory Ventilation, Less than 24 Consecutive Hours, Continuous Positive Airway Pressure (ICD-10-PCS; 2020-07-21)
PROC: 5A0935A Assistance with Respiratory Ventilation, Less than 24 Consecutive Hours, High Flow/Velocity Cannula (ICD-10-PCS; 2020-07-21)
PROC: 0QB23ZX Excision of Right Pelvic Bone, Percutaneous Approach, Diagnostic (ICD-10-PCS; principal; 2020-07-22)
DX: C79.51 Secondary malignant neoplasm of bone (principal); J96.01 Acute respiratory failure with hypoxia; I50.33 Acute on chronic diastolic (congestive) heart failure; I26.99 Other pulmonary embolism without acute cor pulmonale; E87.1 Hypo-osmolality and hyponatremia; E87.2 Acidosis; I31.3 Pericardial effusion (noninflammatory); N17.9 Acute kidney failure, unspecified; M84.551A Pathological fracture in neoplastic disease, right femur, initial encounter for fracture; M84.58XA Pathological fracture in neoplastic disease, other specified site, initial encounter for fracture; I82.511 Chronic embolism and thrombosis of right femoral vein; J98.11 Atelectasis; I24.8 Other forms of acute ischemic heart disease; Z92.3 Personal history of irradiation; I07.1 Rheumatic tricuspid insufficiency; E87.70 Fluid overload, unspecified; C50.911 Malignant neoplasm of unspecified site of right female breast; Z17.0 Estrogen receptor positive status [ER+]; R79.1 Abnormal coagulation profile; J98.2 Interstitial emphysema; R31.9 Hematuria, unspecified; Z66 Do not resuscitate; Z20.822 Contact with and (suspected) exposure to COVID-19; I46.9 Cardiac arrest, cause unspecified; Z51.5 Encounter for palliative care; Z80.1 Family history of malignant neoplasm of trachea, bronchus and lung; Z92.21 Personal history of antineoplastic chemotherapy; Z60.2 Problems related to living alone; R59.0 Localized enlarged lymph nodes; Z74.01 Bed confinement status; Z90.49 Acquired absence of other specified parts of digestive tract; Z80.42 Family history of malignant neoplasm of prostate; Z80.8 Family history of malignant neoplasm of other organs or systems; Z80.3 Family history of malignant neoplasm of breast; E86.0 Dehydration; I27.29 Other secondary pulmonary hypertension
CPT/HCPCS: 20220; 36415; 36600; 71045; 71250; 71275; 74176; 77012; 80048; 80053; 81001; 82805; 83605; 83880; 84484; 85025; 85379; 85610; 85730; 86300; 86850; 86900; 86901; 87040; 87635; 88307; 88311; 88341; 88342; 93005; 93306; 93970; 94660; 99285